=== PATIENT | male | born 1960 | race Caucasian/White ===

== ENCOUNTER → 2017-02-13 | Outpatient (CLI) | payer OTHER ==
[2017-02-13 11:53] LABS: ALT 40 U/L (21-72); AST 25 U/L (17-59); Alkaline Phosphatase 66 U/L (38-126); Anion Gap 12 mmol/L; Blood Urea Nitrogen 17 mg/dL (9-20); Calcium 9.3 mg/dL (8.4-10.2); Carbon Dioxide 24 mmol/L (22-30); Chloride 103 mmol/L (98-107); Cholesterol 115 mg/dL (<200); Glucose 168 mg/dL (74-99); HDL Cholesterol 35 mg/dL (40-60); Non-African American GFR(MDRD) >60 (>60 ml/min/1.73 sqM); Potassium 4.7 mmol/L (3.5-5.1); Sodium 139 mmol/L (137-145); Total Bilirubin 1.4 mg/dL (0.2-1.3); Total Protein 7.5 g/dL (6.3-8.2); Triglycerides 168 mg/dL (<150)
== END | disposition home or self-care (01) ==
LOC: LABWHC1 11:07
PROVIDERS: ATTEND Internal Medicine Endocrinology, Diabetes & Metabolism
DX: E11.65 Type 2 diabetes mellitus with hyperglycemia (principal)
CPT/HCPCS: 36415; 80053; 80061; 82043

== ENCOUNTER → 2017-06-11 | Outpatient (CLI) | payer OTHER ==
[2017-06-11 13:05] LABS: Basophils % (A) 1 %; CH 28.6; CHCM 33.5; Eosinophils # (A) 0.2 k/uL (0-0.7); Eosinophils % (A) 3 %; HCT 43.7 % (39.0-53.0); HDW 2.57; HGB 14.5 gm/dL (13.0-17.5); Luc # (Auto) 0.15; Luc % (Auto) 3; Lymphocytes # (A) 1.8 k/uL (1.0-4.8); Lymphocytes % (A) 36 %; MCH 28.6 pg (25.0-35.0); MCHC 33.3 g/dL (31.0-37.0); MCV 85.9 fL (80.0-100.0); Mean Platelet Volume 6.9; Monocytes # (A) 0.3 k/uL (0-1.0); Monocytes % (A) 6 %; Neutrophils # (A) 2.6 k/uL (1.3-7.7); Neutrophils % (A) 51 %; RBC 5.08 m/uL (4.30-5.90); RDW 13.3 % (11.5-15.5); WBC (Perox) 4.92
[2017-06-11 13:35] LABS: ALT 45 U/L (21-72); AST 22 U/L (17-59); Alkaline Phosphatase 68 U/L (38-126); Anion Gap 10 mmol/L; Blood Urea Nitrogen 15 mg/dL (9-20); Calcium 9.7 mg/dL (8.4-10.2); Carbon Dioxide 25 mmol/L (22-30); Chloride 102 mmol/L (98-107); Cholesterol 134 mg/dL (<200); Glucose 197 mg/dL (74-99); HDL Cholesterol 35 mg/dL (40-60); Non-African American GFR(MDRD) >60 (>60 ml/min/1.73 sqM); Potassium 5.1 mmol/L (3.5-5.1); Sodium 137 mmol/L (137-145); Total Bilirubin 1.3 mg/dL (0.2-1.3); Total Protein 6.8 g/dL (6.3-8.2)
== END | disposition home or self-care (01) ==
LOC: LABWHC1 11:57
PROVIDERS: ATTEND Internal Medicine Endocrinology, Diabetes & Metabolism
DX: E11.65 Type 2 diabetes mellitus with hyperglycemia (principal)
CPT/HCPCS: 36415; 80053; 80061; 82043; 82570; 84443; 85025

== ENCOUNTER 2017-10-14 10:17 | Observation (INO) | payer OTHER ==
[2017-10-14] MEDS ORDERED: ASPIRIN 81 MG PO STA (10:30)
--- NOTE | 2017-10-14 10:40 | ED ---
Chest Pain HPI - General Chief Complaint: Chest Pain Stated Complaint: CHEST PAIN Time Seen by Provider: 10/14/17 10:29 Source: patient Mode of arrival: wheelchair Limitations: no limitations - History of Present Illness Initial Comments: Patient complains of chest pain. His symptoms began about 3 hours ago. He had a burning sensation. He took a nitro tab, as well as some soda. He states that his symptoms have resolved. He has no nausea, vomiting, diaphoresis. He currently has no belly or back pain. He has no lightheadedness or dizziness. He has no neck pain or stiffness. He denies any palpitations. He has no pain or swelling in the arms or legs. He had no focal weakness. The pain did not radiate anywhere. - Related Data Home Medications Medication Instructions Recorded Confirmed Aspirin 81 mg PO DAILY 04/26/14 10/14/17 Clopidogrel [Plavix] 75 mg PO DAILY 04/26/14 10/14/17 Liraglutide [Victoza 3-Familia] 1.8 mg SQ DAILY 04/26/14 10/14/17 Metoprolol Succinate [Toprol XL] 50 mg PO HS 04/26/14 10/14/17 Atorvastatin [Lipitor] 20 mg PO HS 10/14/17 10/14/17 Enalapril [Vasotec] 5 mg PO DAILY 10/14/17 10/14/17 Insulin Detemir [Levemir Flextouch] 48 units SQ BID 10/14/17 10/14/17 Multivitamin [Men's Multi-Vitamin] 1 tab PO DAILY 10/14/17 10/14/17 [place]-3 Fatty Acids/Fish Oil [Fish 1 cap PO BID 10/14/17 10/14/17 Oil 1,000 mg Softgel] Ubidecarenone [Co Q-10] 100 mg PO BID 10/14/17 10/14/17 metFORMIN HCL [Glucophage] 850 mg PO BID 10/14/17 10/14/17 Previous Rx's Medication Instructions Recorded Nitroglycerin Sl Tabs [Nitrostat] 0.4 mg SUBLINGUAL Q5M PRN #20 tab 04/27/14 Allergies Allergy/AdvReac Type Severity Reaction Status Date / Time No Known Allergies Allergy Verified 10/14/17 10:56 Review of Systems ROS Statement: Those systems with pertinent positive or pertinent negative responses have been documented in the HPI. ROS Other: All systems not noted in ROS Statement are negative. EKG Findings - EKG Comments: EKG Findings:: EKG interpreted by me showing 55 bpm, normal NM interval and QRS complexes, no ST elevation or depression, interpreted by me as sinus bradycardia. Past Medical History Past Medical History: Coronary Artery Disease (CAD), Diabetes Mellitus, Hyperlipidemia, Hypertension History of Any Multi-Drug Resistant Organisms: None Reported Past Surgical History: Heart Catheterization With Stent, Orthopedic Surgery Additional Past Surgical History / Comment(s): heart cath x3 Past Anesthesia/Blood Transfusion Reactions: No Reported Reaction Date of Last Stent Placement:: 2008 Past Psychological History: No Psychological Hx Reported Smoking Status: Former smoker Past Alcohol Use History: None Reported Past Drug Use History: None Reported - Past Family History Father Family Medical History: Cancer, Coronary Artery Disease (CAD), Diabetes Mellitus , Prostate Disorder Mother Additional Family Medical History / Comment(s): Valve replacement, mrsa, [place] Palsy General Exam Limitations: no limitations General appearance: alert, in no apparent distress Head exam: Present: atraumatic, normocephalic, normal inspection Eye exam: Present: normal appearance, PERRL, EOMI. Absent: scleral icterus, conjunctival injection, periorbital swelling ENT exam: Present: normal exam, mucous membranes moist Neck exam: Present: normal inspection. Absent: tenderness, meningismus, lymphadenopathy Respiratory exam: Present: normal lung sounds bilaterally. Absent: respiratory distress, wheezes, rales, rhonchi, stridor Cardiovascular Exam: Present: regular rate, normal rhythm, normal heart sounds. Absent: systolic murmur, diastolic murmur, rubs, gallop, clicks GI/Abdominal exam: Present: soft, normal bowel sounds. Absent: distended, tenderness, guarding, rebound, rigid Extremities exam: Present: normal inspection, full ROM, normal capillary refill. Absent: tenderness, pedal edema, joint swelling, calf tenderness Back exam: Present: normal inspection Neurological exam: Present: alert, oriented X3, CN II-XII intact Psychiatric exam: Present: normal affect, normal mood Skin exam: Present: warm, dry, intact, normal color. Absent: rash Course Vital Signs 10/14/17 10:22 Temperature 97.4 F L Pulse Rate 59 L Respiratory 20 Rate Blood Pressure 122/58 O2 Sat by Pulse 100 Oximetry Chest Pain MDM - MDM Patient complains of chest pain, which was slightly relieved by nitroglycerin. On repeat evaluation his resting comfortably. His workup is negative. He does have a very extensive cardiac history including CO and cardiac stenting. This patient is not appropriate for outpatient follow-up. He will require serial cardiac enzymes as well as possible provocative testing. I will consult cardiology. Patient will be admitted to the hospital. Disposition Clinical Impression: Chest pain Disposition: ADMITTED IP TO THIS HOSP Condition: Fair Referrals: Nicholas Grimaldo MD [Primary Care Provider] - 1-2 days Time of Disposition: 12:07
[2017-10-14 11:04] LABS: Basophils # (A) 0.1 k/uL (0-0.2); Basophils % (A) 1 %; Eosinophils # (A) 0.3 k/uL (0-0.7); Eosinophils % (A) 3 %; HCT 44.6 % (39.0-53.0); HGB 14.6 gm/dL (13.0-17.5); Lymphocytes # (A) 2.3 k/uL (1.0-4.8); Lymphocytes % (A) 23 %; MCH 27.5 pg (25.0-35.0); MCHC 32.9 g/dL (31.0-37.0); MCV 83.6 fL (80.0-100.0); Mean Platelet Volume 7.1; Monocytes # (A) 0.7 k/uL (0-1.0); Monocytes % (A) 7 %; Neutrophils # (A) 6.6 k/uL (1.3-7.7); Neutrophils % (A) 66 %; Platelet Count 364 k/uL (150-450); RBC 5.34 m/uL (4.30-5.90); RDW 14.3 % (11.5-15.5)
[2017-10-14 11:14] LABS: Partial Thromboplastin Time 23.1 sec (22.0-30.0); Prothrombin Time 10.1 sec (9.0-12.0)
[2017-10-14 11:17] LABS: ALT 49 U/L (21-72); AST 20 U/L (17-59); Albumin 4.3 g/dL (3.5-5.0); Alkaline Phosphatase 69 U/L (38-126); Anion Gap 14 mmol/L; Blood Urea Nitrogen 20 mg/dL (9-20); Carbon Dioxide 27 mmol/L (22-30); Chloride 97 mmol/L (98-107); Glucose 139 mg/dL (74-99); Lipase 142 U/L (23-300); Magnesium 1.4 mg/dL (1.6-2.3); Sodium 138 mmol/L (137-145); Total Bilirubin 1.3 mg/dL (0.2-1.3); Total Protein 6.8 g/dL (6.3-8.2)
--- NOTE | 2017-10-14 11:33 | XR ---
EXAMINATION TYPE: XR chest 2V DATE OF EXAM: 10/14/2017 COMPARISON: Chest x-ray April 25, 2014 HISTORY: History of heart attack presents with chest pain. TECHNIQUE: Frontal and lateral views of the chest are obtained. FINDINGS: There is no focal air space opacity, pleural effusion, or pneumothorax seen. The cardiac silhouette size is within normal limits. Multilevel spurring in the mid to lower thoracic spine is re demonstrated. IMPRESSION: No acute process. No significant change from prior.
[2017-10-14 12:02] LABS: Appearance,Urine Clear (Clear); Bilirubin,Urine Negative (Negative); Blood,Urine Negative (Negative); Color,Urine Light Yellow; Glucose,Urine (UA) Negative (Negative); Ketones,Urine Negative (Negative); Leukocyte Esterase,Urine Negative (Negative); Nitrite,Urine Negative (Negative); Protein,Urine Negative (Negative); Specific Gravity,Urine 1.006 (1.001-1.035); Urobilinogen,Urine <2.0 mg/dL (<2.0)
[2017-10-14] MEDS ORDERED: NALOXONE 0.4 MG/ML 1 ML VIAL IV PRN (12:08)
[2017-10-14] MEDS ORDERED: ONDANSETRON 4 MG/2 ML VIAL IVP PRN (12:08)
[2017-10-14] MEDS ORDERED: MORPHINE SULFATE 5 MG/ML SYRINGE IV PRN (12:08)
[2017-10-14] MEDS ORDERED: NITROGLYCERIN SL TABS 0.4 MG TAB SUBLINGUAL PRN (12:11)
[2017-10-14 20:12] LABS: Glucose,Whole Blood 274 mg/dL (75-99)
[2017-10-14] MEDS ORDERED: ATORVASTATIN 20 MG TAB PO SCH (21:00)
[2017-10-14] MEDS: METOPROLOL SUCCINATE (ER) 50 MG TAB.ER.24H PO SCH (21:03)
[2017-10-14] MEDS: INSULIN DETEMIR 100 UNIT/ML 10 ML VIAL SQ SCH (21:03)
[2017-10-14] MEDS: FAMOTIDINE 20 MG TAB PO SCH (21:03)
[2017-10-14] MEDS: metFORMIN 850 MG TAB PO SCH (21:03)
--- NOTE | 2017-10-14 22:15 | HP ---
HISTORY AND PHYSICAL DATE OF ADMISSION: 10/14/2017. PRESENTING COMPLAINT: Chest pain. HISTORY OF PRESENTING COMPLAINT: A very pleasant 57-year-old patient of Dr. Grimaldo. Also follows with cardiology, Dr. Draa Ibanez. The patient has had 4 coronary stents, the last one being 3 years ago. No stress test since then. Other chronic stable medical conditions include diabetes, hypertension, hyperlipidemia. 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 There was no radiation, no shortness of breath, no perspiration, no dizziness, though does feel nauseated. The patient did take a nitro with only minimal relief. Symptoms lasted for a good at least 1 hour until he got relief and patient came into the ER for the diagnosis of unstable angina. The patient is able to carry out normally his chores without any symptoms. REVIEW OF SYSTEMS: CONSTITUTIONAL: None. HEENT: None. RESPIRATORY: None. CARDIOVASCULAR: As above. GASTROINTESTINAL: None. GENITOURINARY: None. MUSCULOSKELETAL: None. DERMATOLOGICAL: None. HEMATOLOGIC: None. LYMPHATIC: None. PSYCHIATRY: None. NEUROLOGICAL: None. PAST MEDICAL HISTORY: Coronary artery disease with stent, diabetes, GERD, hyperlipidemia, varicose veins bilaterally, rosacea. PAST SURGICAL HISTORY: Cardiac cath with stent, re-attached muscle. SOCIAL HISTORY: . He works on the [employer] line. Smoked for 18 years, stopped 18 years ago. Alcohol rarely. FAMILY HISTORY: Coronary artery disease, diabetes, prostate cancer in the father. HOME MEDICATIONS: 1. Glucophage 850 mg b.i.d. 2. CO-Q10 100 mg b.i.d. 3. Fish oil 1 capsule p.o. daily. 4. Nitrostat 0.4 sublingual q.5 p.r.n. 5. Men's multivitamin 1 tablet p.o. daily. 6. Toprol-XL 50 mg p.o. q.h.s. 7. Victoza 3-pack 1.2 mg subcu daily. 8. Levemir 48 units subcu b.i.d. 9. Vasotec 5 mg p.o. daily. 10.Plavix 75 mg p.o. daily. 11.Lipitor 20 mg q.h.s. 12.Aspirin 81 mg p.o. daily. ALLERGIES: None. EXAMINATION: Temperature 98.4, pulse 74, respirations 18, blood pressure 110/67, pulse ox 94% on room air. GENERAL APPEARANCE: Elderly male, lying in bed, comfortable. EYES: Pupils equal. Conjunctivae normal. HEENT: Oral cavity normal. NECK: JVD not raised. Mass not palpable. RESPIRATORY: Effort normal. Lungs are clear. CARDIOVASCULAR: First and second sounds normal. No edema. ABDOMEN: Soft, nontender. Liver and spleen not palpable. LYMPHATIC: No lymph node palpable. PSYCHIATRY: Alert and oriented x3. Mood and affect normal. NEUROLOGICAL: Pupils equal. Cranial nerves grossly intact. Power and sensation grossly intact. INVESTIGATIONS: White count 10, hemoglobin 14.6. Potassium 4.0, BUN and creatinine are normal. Troponin x2 negative. UA negative. EKG: Normal sinus rhythm. ASSESSMENT: 1. Unstable angina lasting for a good hour in a patient with known coronary artery disease with stent with currently 2 sets of troponin being negative. 2. Diabetes mellitus type 2, chronically on insulin. 3. Hyperlipidemia. 4. Essential hypertension. 5. Chronic rosacea. 6. Gastroesophageal reflux disease. 7. Varicose veins, bilateral lower extremity. PLAN: Home medications are resumed. Patient is currently chest pain free. Serial troponins have been placed. Cardiology was consulted. Will make the patient n.p.o. in the morning except for p.o. meds. Review of possible cardiac cath. If not, then patient will get the stress test. Care was discussed with the patient. MMODL / IJN: [id number] /
[2017-10-15 07:31] LABS: Glucose,Whole Blood 179 mg/dL (75-99)
[2017-10-15] MEDS: metFORMIN 850 MG TAB PO SCH (07:58)
[2017-10-15] MEDS: LISINOPRIL 10 MG TAB PO SCH (08:01)
[2017-10-15] MEDS: CLOPIDOGREL 75 MG TAB PO SCH (08:01)
[2017-10-15] MEDS: FAMOTIDINE 20 MG TAB PO SCH ×2 (08:02→20:44)
[2017-10-15] MEDS ORDERED: ALPRAZolam 0.5 MG TAB PO PRN (08:05)
[2017-10-15] MEDS ORDERED: ASPIRIN 325 MG TAB PO STA (08:05)
[2017-10-15] MEDS ORDERED: SODIUM CHLORIDE 0.9% 1,000 ML in EMPTY BAG 1 BAG IV ONE (08:05)
[2017-10-15] MEDS ORDERED: ATORVASTATIN 80 MG TAB PO STA (08:05)
[2017-10-15] MEDS ORDERED: ALPRAZolam 0.25 MG TAB PO PRN (08:05)
[2017-10-15] MEDS ORDERED: ASPIRIN 81 MG PO SCH (09:00)
[2017-10-15] MEDS ORDERED: MIDAZOLAM 2 MG/2 ML VIAL ONE (09:43)
[2017-10-15] MEDS ORDERED: LIDOCAINE 2% INJ 20 MG/ML (20 ML MDV) ONE (09:43)
[2017-10-15] MEDS ORDERED: diphenhydrAMINE 50 MG/ML 1 ML VIAL ONE (09:43)
[2017-10-15] MEDS ORDERED: IV FLUID CONTINUATION 925 ML IV ONE (09:50)
[2017-10-15] MEDS ORDERED: diphenhydrAMINE 50 MG/ML 1 ML VIAL IVP ONE (10:03)
[2017-10-15] MEDS ORDERED: MIDAZOLAM 2 MG/2 ML VIAL IVP ONE (10:03)
[2017-10-15] MEDS ORDERED: IOHEXOL 350 MG/ML 125ML BOTTLE INJ ONE (10:23)
[2017-10-15] MEDS ORDERED: RX INFO: IV CONTRAST WAS GIVEN 1 EACH MISC MISCELLANE PRN (11:04)
--- NOTE | 2017-10-15 11:30 | P.CRDCN ---
History of Present Illness Consult date: 10/15/17 History of present illness: Mr. Wright is a pleasant 57-year-old male with past medical history significant for coronary artery disease with 8 stents, diabetes mellitus, gastroesophageal reflux disease, dyslipidemia and former tobacco abuse. His most recent catheterization was performed 04/[address] Ibanez. That catheterization report reveals 90% in-stent restenosis mid LAD, proximal circumflex 90% stenosis, distal circumflex 80% and totally occluded RCA. At that time he sought a second opinion at [facility] at that time. He presented to the hospital yesterday after feeling tightness and burning in midsternal region while at work. 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 Initially he thought the pain was related to GERD so he drank a coke to try and elicit belching. The pain persisted for approximately an hour more and he tried tums as well as an aspirin. Unclear which helped the pain ultimately. He had no associated symptoms such as shortness of breath, dizziness, palpitations, diaphoresis or nausea/vomiting. EKG sinus mechanism with heart rate 55, no acute ST or T-wave abnormalities. Chest xray negative for acute cardiopulmonary process. Laboratory data reviewed, hgb 14.6, plt 364, potassium 4, magnesium 1.4, creatinine 0.89, cardiac enzymes negative x3. Current cardiac medications include Toprol 50 mg daily, enalapril 5 mg daily, Plavix 75 mg daily, atorvastatin 20 mg daily and aspirin 81 mg daily. Review of Systems CONSTITUTIONAL: Denies fever. Denies chills. EYES: Denies blurred vision. Denies vision changes. Denies eye pain. EARS, NOSE, MOUTH & THROAT: Denies headache. Denies sore throat. Denies ear pain. CARDIOVASCULAR: Denies chest pain. Denies shortness of breath. Denies orthopnea. Denies PND. Denies palpitations. RESPIRATORY: Denies cough. GASTROINTESTINAL: Denies abdominal pain. Denies diarrhea. Denies constipation. Denies nausea. Denies vomiting. MUSCULOSKELETAL: Denies myalgias. INTEGUMENTARY: Denies pruitis. Denies rash. NEUROLOGIC: Denies numbness. Denies tingling. Denies weakness. PSYCHIATRIC: Denies anxiety. Denies depression. ENDOCRINE: Denies fatigue. Denies weight change. Denies polydipsia. Denies polyurina. GENITOURINARY: Denies burning, hematuria or urgency with micturation. HEMATOLOGIC: Denies history of anemia. Denies bleeding. Past Medical History Past Medical History: Coronary Artery Disease (CAD), Diabetes Mellitus, GERD/ Reflux, Hyperlipidemia, Myocardial Infarction ([place]), Skin Disorder Additional Past Medical History / Comment(s): Pt states he is currently being tx for a upper respiratory tract/ throat infection with ABX/steroids, IDDM type II, varicosities bilaterally, rosacia. Last Myocardial Infarction Date:: 2013 History of Any Multi-Drug Resistant Organisms: None Reported Past Surgical History: Heart Catheterization, Heart Catheterization With Stent, Orthopedic Surgery, Tonsillectomy Additional Past Surgical History / Comment(s): PCI with stents, R arm reattached muscle, colonoscopy. Past Anesthesia/Blood Transfusion Reactions: No Reported Reaction Date of Last Stent Placement:: 2013 Smoking Status: Former smoker - Past Family History Father Family Medical History: Cancer, Coronary Artery Disease (CAD), Diabetes Mellitus , Prostate Disorder Additional Family Medical History / Comment(s): Father is . He had prostate cancer. Mother Additional Family Medical History / Comment(s): Mother is . She had valve replacement, mrsa, [place] Palsy Medications and Allergies Home Medications Medication Instructions Recorded Confirmed Type Aspirin 81 mg PO DAILY 04/26/14 10/14/17 History Clopidogrel [Plavix] 75 mg PO DAILY 04/26/14 10/14/17 History Liraglutide [Victoza 3-Familia] 1.8 mg SQ DAILY 04/26/14 10/14/17 History Metoprolol Succinate [Toprol XL] 50 mg PO HS 04/26/14 10/14/17 History Nitroglycerin Sl Tabs [Nitrostat] 0.4 mg SUBLINGUAL Q5M PRN #20 tab 04/27/1407/22 Rx Atorvastatin [Lipitor] 20 mg PO HS 10/14/17 10/14/17 History Enalapril [Vasotec] 5 mg PO DAILY 10/14/17 10/14/17 History Insulin Detemir [Levemir Flextouch] 48 units SQ BID 10/14/17 10/14/17 History Multivitamin [Men's Multi-Vitamin] 1 tab PO DAILY 10/14/17 10/14/17 History [place]-3 Fatty Acids/Fish Oil [Fish 1 cap PO BID 10/14/17 10/14/17 History Oil 1,000 mg Softgel] Ubidecarenone [Co Q-10] 100 mg PO BID 10/14/17 10/14/17 History metFORMIN HCL [Glucophage] 850 mg PO BID 10/14/17 10/14/17 History Allergies Allergy/AdvReac Type Severity Reaction Status Date / Time No Known Allergies Allergy Verified 10/14/17 10:56 Physical Exam Vitals: Vital Signs Temp Pulse Pulse Resp BP BP Pulse Ox 10/15/17 08:00 97.6 F 66 18 113/67 97 10/15/17 03:53 81 18 10/15/17 03:22 98.4 F 81 18 101/65 95 10/14/17 23:55 18 10/14/17 22:35 64 18 122/69 95 10/14/17 20:00 18 10/14/17 19:22 98.4 F 74 18 110/67 94 L 10/14/17 18:19 97.6 F 82 16 123/68 97 10/14/17 17:43 97.6 F 83 18 107/56 97 10/14/17 15:22 56 L 16 125/71 98 10/14/17 14:00 58 L 18 121/68 98 10/14/17 13:20 56 L 18 123/57 100 10/14/17 12:24 58 L 18 125/77 100 10/14/17 11:24 60 18 109/61 100 Intake and Output 10/14/17 10/15/17 10/15/17 22:59 06:59 14:59 Intake Total 250 Balance 250 Intake: IV 250 Other: Voiding Method Toilet # Voids 1 Weight 75.5 kg 75.5 kg Blood pressure 113/67 heart rate 66 afebrile GENERAL: This is a 57-year-old male in no apparent distress at the time of my examination. HEENT: Head is atraumatic, normocephalic. Pupils are equal, round. Sclerae anicteric. Conjunctivae are clear. Mucous membranes of the mouth are moist. Neck is supple. There is no jugular venous distention. No carotid bruit is heard. LUNGS: Clear to auscultation no wheezes, rales or rhonchi. No chest wall tenderness is noted on palpation or with deep breathing. HEART: Regular rate and rhythm without murmurs, rubs or gallops. S1 and S2 heard. ABDOMEN: Soft, nontender. Bowel sounds are heard. No organomegaly noted. EXTREMITIES: 2+ peripheral pulses with no evidence of peripheral edema and no calf tenderness noted. NEUROLOGIC: Patient is awake, alert and oriented x3. Results 10/14/17 10:45 10/14/17 10:45 Cardiac Enzymes 10/14/17 10/14/17 10/14/17 Range/Units 10:45 10:45 19:01 AST 20 (17-59) U/L Troponin I <0.012 <0.012 (0.000-0.034) ng/mL 10/14/17 Range/Units 22:31 AST (17-59) U/L Troponin I <0.012 (0.000-0.034) ng/mL Coagulation 10/14/17 Range/Units 10:45 PT 10.1 (9.0-12.0) sec APTT 23.1 (22.0-30.0) sec CBC 10/14/17 Range/Units 10:45 WBC 10.0 (3.8-10.6) k/uL RBC 5.34 (4.30-5.90) m/uL Hgb 14.6 (13.0-17.5) gm/dL Hct 44.6 (39.0-53.0) % Plt Count 364 (150-450) k/uL Comprehensive Metabolic Panel 10/14/17 Range/Units 10:45 Sodium 138 (137-145) mmol/L Potassium 4.0 (3.5-5.1) mmol/L Chloride 97 L (98-107) mmol/L Carbon Dioxide 27 (22-30) mmol/L BUN 20 (9-20) mg/dL Creatinine 0.89 (0.66-1.25) mg/dL Glucose 139 H (74-99) mg/dL Calcium 10.0 (8.4-10.2) mg/dL AST 20 (17-59) U/L ALT 49 (21-72) U/L Alkaline Phosphatase 69 (38-126) U/L Total Protein 6.8 (6.3-8.2) g/dL Albumin 4.3 (3.5-5.0) g/dL Current Medications Generic Name Dose Route Start Last Admin Trade Name Freq PRN Reason Stop Dose Admin Alprazolam 0.25 mg 10/15/17 08:05 Xanax PO Q6HR PRN Mild Anxiety Alprazolam 0.5 mg 10/15/17 08:05 Xanax PO Q6HR PRN Moderate Anxiety Clopidogrel Bisulfate 75 mg 10/15/17 09:00 10/15/17 08:01 Plavix PO 75 mg DAILY ANDREA Administration Famotidine 20 mg 10/14/17 21:00 10/15/17 08:02 Pepcid PO 20 mg BID ANDREA Administration Insulin Detemir 48 unit 10/14/17 21:00 10/14/17 21:03 Levemir SQ 48 unit BID [facility] Administration Lisinopril 10 mg 10/15/17 09:00 10/15/17 08:01 Zestril PO 10 mg DAILY [facility] Administration Metoprolol Succinate 50 mg 10/14/17 21:00 10/14/17 21:03 Toprol Xl PO 50 mg HS [facility] Administration Morphine Sulfate 4 mg 10/14/17 12:08 Morphine Sulfate IV Q4HR PRN Severe Pain Naloxone HCl 0.2 mg 10/14/17 12:08 Narcan IV Q2M PRN Opioid Reversal Nitroglycerin 0.4 mg 10/14/17 12:11 Nitrostat SUBLINGUAL Q5M PRN Chest Pain Liraglutide [Victoza 1.8 mg 10/15/17 09:00 ] 1.8 Mg SQ DAILY [facility] Ondansetron HCl 4 mg 10/14/17 12:08 Zofran IVP Q8HR PRN Nausea And Vomiting Intake and Output 10/14/17 10/15/17 10/15/17 22:59 06:59 14:59 Intake Total 250 Balance 250 Intake: IV 250 Other: Voiding Method Toilet # Voids 1 Weight 75.5 kg 75.5 kg 10/14/17 10:45 10/14/17 10:45 Assessment and Plan Assessment: ASSESSMENT 1. Unstable angina 2. Known coronary artery disease 3. Dyslipidemia 4. Hypertension 5. Diabetes mellitus 6. Hypomagnesemia PLAN Obtain 2-D echocardiogram and Doppler study to assess cardiac structure and function. Replace magnesium per protocol. Recommend proceeding with cardiac catheterization to evaluate symptoms of unstable angina. I have discussed the risks, benefits and alternative therapies for the above-mentioned procedure and for both sedation/analgesia as well as necessary blood product administration, if indicated, as they pertain to this patient. The patient has indicated understanding and acceptance of the risks and procedures discussed. Questions have been answered appropriately and he is agreeable to move forward with the above stated procedure. The above impression and plan of care have been discussed and directed by the signing physician. Ann Marie Beltran, nurse practitioner, acting as scribe for signing physician.
[2017-10-15 12:22] LABS: Glucose,Whole Blood 245 mg/dL (75-99)
[2017-10-15] MEDS: Liraglutide [Victoza] 1.8 MG SQ SCH (13:03)
[2017-10-15] MEDS: INSULIN DETEMIR 100 UNIT/ML 10 ML VIAL SQ SCH ×2 (13:33→21:22)
[2017-10-15] MEDS ORDERED: SODIUM CHLORIDE 0.9% 250 ML IV ONE (14:51)
[2017-10-15] MEDS ORDERED: SODIUM CHLORIDE 0.9% 1,000 ML IV SCH (15:00)
--- NOTE | 2017-10-15 15:03 | P.PN ---
Progress Note - Text Progress Note Date: 10/15/17 Called by nursing to the room to evaluate Mr. Wright for a brief episode of bleeding from right femoral access site. At the time of my exam he is laying flat in bed with no evidence of bleeding. There is some saturation of the bed beneath him. The site is soft, non-tender, no bruising and no signs of hematoma. Blood pressure is 86/40. He denies chest pain, shortness of breath, dizziness, palpitations, pain in the groin or abdomen. Orders have been placed for fem-stop device at 40mmHg for 4 hours, 250cc normal saline bolus then 100cc/ hr thereafter. He will stay overnight for observation.
--- NOTE | 2017-10-15 15:26 | ECHOF ---
Referral Reason:chest pain MEASUREMENTS -------- HEIGHT: 172.7 cm WEIGHT: 77.1 kg BP: 122/58 IVSd: 0.9 cm (0.6 - 1.1) LVIDd: 3.6 cm (3.9 - 5.3) LVPWd: 1.0 cm (0.6 - 1.1) IVSs: 1.2 cm LVIDs: 2.7 cm LVPWs: 1.2 cm LAESV Index (A-L): 12.38 ml/m Ao Diam: 3.1 cm (2.0 - 3.7) AV Cusp: 2.1 cm (1.5 - 2.6) LA Diam: 3.3 cm (2.7 - 3.8) EPSS: 0.8 cm MV E [place]orta: 0.64 m/s MV DecT: 203 ms MV A [place]: 0.61 m/s MV E/A Ratio: 1.06 RAP: 5.00 mmHg RVSP: 8.86 mmHg MV EF SLOPE: 151.50 mm/s (70 - 150) MV EXCURSION: 1.90 cm (> 18.000) FINDINGS -------- Resting bradycardia (HR<60bpm). This was a technically adequate study. The left ventricular size is normal. Left ventricular wall thickness is normal. Overall left vent ricular systolic function is low-normal with, an EF between 50 - 55 %. The right ventricle is normal in size and function. Normal LA size by volume 22+/-6 ml/m2. The right atrium is normal in size. Aortic valve is trileaflet and is mildly thickened. Trace to mild aortic regurgitation. There is no evidence of aortic stenosis. The mitral valve leaflets are mildly thickened. There is trace to mild mitral regurgitation. Trace tricuspid regurgitation present. Right ventricular systolic pressure is normal at < 35 mmHg. There is no evidence of pulmonary hypertension. The pulmonic valve was not well visualized. The aortic root size is normal. Normal inferior vena cava with normal inspiratory collapse consistent with estimated right atrial pre ssure of 5 mmHg. The pericardium is normal. There is no pericardial effusion. CONCLUSIONS -------- 1. Resting bradycardia (HR<60bpm). 2. This was a technically adequate study. 3. The left ventricular size is normal. 4. Left ventricular wall thickness is normal. 5. Overall left ventricular systolic function is low-normal with, an EF between 50 - 55 %. 6. Normal LA size by volume 22+/-6 ml/m2. 7. Aortic valve is trileaflet and is mildly thickened. 8. Trace to mild aortic regurgitation. 9. The mitral valve leaflets are mildly thickened. 10. There is trace to mild mitral regurgitation. 11. Trace tricuspid regurgitation present. 12. Right ventricular systolic pressure is normal at < 35 mmHg. 13. There is no evidence of pulmonary hypertension. 14. The pulmonic valve was not well visualized. 15. The aortic root size is normal. 16. There is no pericardial effusion. INSPECTOR FILTER TIP: Trevor Guerra RDCS
[2017-10-15 17:24] LABS: Glucose,Whole Blood 212 mg/dL (75-99)
--- NOTE | 2017-10-15 19:50 | P.PN ---
Progress Note - Text Progress Note Date: 10/15/17 DATE OF SERVICE: 10/15/2017 PRESENTING COMPLAINT: Chest pain HISTORY OF PRESENT ILLNESS: 57-year-old male with a history of previous stents. Who presented with central chest pain no radiation shortness of breath perspiration or dizziness but did feel nauseated. Took a nitroglycerin with only minimal relief symptoms lasted for about an hour and was admitted for unstable angina. Cardiology recommended proceeding with a cardiac catheterization. INTERVAL HISTORY: 10/15/2017: Patient is now status post cardiac catheterization with no intervention to be performed. Procedure was done through the right groin, no obvious bleeding or hematoma noted. Blood pressure noted to be somewhat low, IV fluids are infusing. Awake alert able to answer questions no further episodes of chest pain or pressure, no shortness of breath no radiation. REVIEW OF SYSTEMS: Done for constitutional ,cardiovascular, GI, pulmonary with relevant findings as above. CURRENT MEDICATIONS Xanax, Plavix, Pepcid, Levemir, Zestril, Toprol-XL, Nitrostat, Liraglutide, 0.9 % normal saline. PHYSICAL EXAM VITAL SIGNS: Temperature 97.9, pulse 71, respiratory rate 18, blood pressure 99/56, oxygen saturation 94% GENERAL APPEARANCE: Lying in bed, not in distress. HEENT: Normocephalic, Pupils equal. Conjunctiva normal. JVD not raised. Mass not palpable.: RESPIRATORY: Respiratory effort normal. Lungs managed to auscultation. CARDIOVASCULAR: First and second sounds normal. No edema. ABDOMEN: Soft. Liver and spleen not palpable. No tenderness. No mass palpable. PSYCHIATRY: Alert and oriented x3. Mood and affect normal. INTEGUMENT: Right groin access site clean dry and intact dressing in place no bleeding or hematoma noted INVESTIGATIONS: Accu-Cheks noted ASSESSMENT: -Unstable angina in a patient with known coronary artery disease and previous stent placement, cardiac catheterization negative for lesions or blocks stent -Diabetes mellitus type 2, chronically on insulin. -Hyperlipidemia -Essential hypertension. -Chronic rosacea. -Gastroesophageal reflux disease. -Varicose veins, bilateral lower extremity. PLAN: Original plan was for the patient to go home later today however about 3 PM cardiology nurse practitioner was called for an episode of bleeding for which they placed FemoStop and patient will remain in observation overnight. Plan of care discussed with the patient, he is in agreement. We'll follow closely. SUPERVISOR [employer] statement: Patient was seen and examined by nurse practitioner Deirdre Bauman and all elements of the case discussed with attending Dr. Modi
[2017-10-15 20:33] LABS: Glucose,Whole Blood 343 mg/dL (75-99)
[2017-10-15] MEDS: METOPROLOL SUCCINATE (ER) 50 MG TAB.ER.24H PO SCH (20:44)
--- NOTE | 2017-10-15 23:25 | PN ---
PROGRESS NOTE DATE OF SERVICE: 10/15/2017. ATTENDING NOTE: The patient seen and examined by me. I discussed with my nurse practitioner, Ms. Bauman. I saw this patient earlier today just after his cardiac cath. Lesions were found, but nothing for intervention. No critical stenosis. The patient is having some bleeding from the groin site and Cardiology is going to put a FemoStop. Otherwise, no chest pain, shortness of breath. EXAMINATION: Temperature 97.9 pulse 65, blood pressure is 99/44, pulse ox 6% on room air. Lungs are clear. CARDIOVASCULAR: First and second sounds normal. ASSESSMENT: 1. Unstable angina. Patient with known coronary artery disease status post cardiac catheterization with no critical stenosis on today's cardiac catheterization. 2. Some blood loss from the local cardiac catheterization site for a FemoStop. PLAN: Per cardiology, patient will be held back today. Will check a CBC in the morning. Care was discussed with the patient. MMODL / IJN: [id number] /
[2017-10-16 06:41] LABS: Glucose,Whole Blood 102 mg/dL (75-99)
[2017-10-16 07:27] LABS: Basophils % (A) 1 %; Eosinophils # (A) 0.3 k/uL (0-0.7); Eosinophils % (A) 4 %; HCT 41.5 % (39.0-53.0); HGB 13.7 gm/dL (13.0-17.5); Lymphocytes # (A) 2.3 k/uL (1.0-4.8); Lymphocytes % (A) 35 %; MCH 27.9 pg (25.0-35.0); MCHC 33.1 g/dL (31.0-37.0); MCV 84.2 fL (80.0-100.0); Mean Platelet Volume 6.4; Monocytes # (A) 0.5 k/uL (0-1.0); Monocytes % (A) 7 %; Neutrophils # (A) 3.3 k/uL (1.3-7.7); Neutrophils % (A) 51 %; Platelet Count 311 k/uL (150-450); RBC 4.93 m/uL (4.30-5.90); RDW 12.5 % (11.5-15.5); WBC 6.4 k/uL (3.8-10.6)
[2017-10-16 07:29] LABS: Anion Gap 9 mmol/L; Blood Urea Nitrogen 14 mg/dL (9-20); Calcium 9.2 mg/dL (8.4-10.2); Carbon Dioxide 24 mmol/L (22-30); Chloride 106 mmol/L (98-107); Glucose 106 mg/dL (74-99); Potassium 4.3 mmol/L (3.5-5.1); Sodium 139 mmol/L (137-145)
[2017-10-16 08:23] VITALS: RESP 16
[2017-10-16] MEDS: FAMOTIDINE 20 MG TAB PO SCH (08:55)
[2017-10-16] MEDS: LISINOPRIL 10 MG TAB PO SCH (08:55)
[2017-10-16] MEDS: CLOPIDOGREL 75 MG TAB PO SCH (08:55)
[2017-10-16] MEDS: INSULIN DETEMIR 100 UNIT/ML 10 ML VIAL SQ SCH (08:56)
[2017-10-16] MEDS ORDERED: MORPHINE SULFATE 2 MG/ML SYRINGE IV PRN (08:58)
[2017-10-16] MEDS: Liraglutide [Victoza] 1.8 MG SQ SCH (09:08)
--- NOTE | 2017-10-16 10:34 | P.PN ---
Subjective Progress Note Date: 10/16/17 Mr. Wright is seen today in follow-up. He underwent cardiac catheterization yesterday with Dr. Chin which revealed no progression of coronary artery disease and patent stents. He is advised of medical therapy. He had a minor episode of bleeding in his right groin s/p cath of which fem stop was applied and bedrest was increased. He had no further episodes of bleeding. Right groin is soft, non-tender, no swelling, no hematoma. He has been up ambulating the halls and back and forth to the bathroom without difficulty. Objective - Vital Signs Vital signs: Vital Signs Temp 98.1 F 10/16/17 08:00 Pulse 50 L 10/16/17 08:00 Resp 16 10/16/17 08:00 BP 87/66 10/16/17 08:00 Pulse Ox 98 10/16/17 08:00 Intake & Output 10/15/17 10/16/17 10/16/17 18:59 06:59 18:59 Intake Total 1005 360 Balance 1005 360 Intake: IV 525 Oral 480 360 Other: Voiding Method Toilet Toilet Toilet Urinal Urinal # Voids 1 2 2 - Exam Vitals blood pressure 100/60. Heart rate is 62. Afebrile. GENERAL: Well-appearing, well-nourished and in no acute distress. NECK: Supple without JVD or thyromegaly. LUNGS: Breath sounds clear to auscultation bilaterally. Respiration equal and unlabored. No wheezes, rales or rhonchi. HEART: Regular rate and rhythm without murmurs, rubs or gallops. S1 and S2 heard. EXTREMITIES: Normal range of motion, no edema. No clubbing or cyanosis. Peripheral pulses intact and strong. Right groin soft, non-tender, no hematoma, no sign of bleeding. - Labs CBC & Chem 7: 10/16/17 06:28 10/16/17 06:28 Labs: Abnormal Lab Results - Last 24 Hours (Table) 10/15/17 10/15/17 10/15/17 Range/Units 12:03 17:01 20:21 Glucose (74-99) mg/dL POC Glucose (mg/dL) 245 H 212 H 343 H (75-99) mg/dL 10/16/17 10/16/17 Range/Units 06:28 06:38 Glucose 106 H (74-99) mg/dL POC Glucose (mg/dL) 102 H (75-99) mg/dL Assessment and Plan Assessment: ASSESSMENT 1. Unstable angina 2. Known coronary artery disease 3. Dyslipidemia 4. Hypertension 5. Diabetes mellitus 6. Hypomagnesemia PLAN Stable for discharge home. Follow up with Dr. Chin in 1-2 weeks. The above impression and plan of care have been discussed and directed by the signing physician. Ann Marie Beltran, nurse practitioner, acting as scribe for signing physician.
[2017-10-16 11:26] VITALS: BP 111/54; PULSE 59; TEMP 98.2
[2017-10-16 11:57] LABS: Glucose,Whole Blood 190 mg/dL (75-99)
--- NOTE | 2017-10-16 13:02 | DS ---
DISCHARGE SUMMARY DATE OF ADMISSION: 10/14/2017 DATE OF DISCHARGE: 10/16/2017 FINAL DIAGNOSIS: 1. Possible angina in a patient with known coronary artery disease. 2. Diabetes mellitus type 2, chronically on insulin. 3. Hyperlipidemia. 4. Essential hypertension. 5. Chronic rosacea. 6. Gastroesophageal reflux disease. 7. Varicose veins, lower extremity. 8. Coronary artery disease, prior history of stent. HOSPITAL COURSE: This is a pleasant gentleman, 57 [address] Grimaldo's whose last stent was 4 years ago. Did present with a bit cardiac-sounding presentation, did undergo a cardiac catheterization by Dr. Chin, a nonobstructive lesion was found. Not for any intervention. Because of his presentation, nitrates are being added. Patient's hemoglobin is stable today at 13.7. On examination, lungs are clear. CARDIOVASCULAR: First and second sounds are normal. The patient has been up and out of bed with no further cardiac symptoms. CONSULTATION: Dr. Rosetta Chin from Cardiology. DISCHARGE MEDICATIONS: 1. Aspirin 81 mg p.o. daily. 2. Plavix 75 mg p.o. daily. 3. Victoza 1.8 mg subcu daily. 4. Toprol-XL 50 mg p.o. q.h.s. 5. Nitrostat 0.4 sublingual q.5 p.r.n. 6. Lipitor 20 mg q.h.s. 7. Vasotec 5 mg p.o. daily. 8. Levemir 48 units subcu b.i.d. 9. Men's multivitamin 1 tablet p.o. daily. 10.Fish oil 1000 mg p.o. b.i.d. 11.CO Q-10 one hundred mg p.o. b.i.d. 12.Glucophage 850 mg p.o. b.i.d. 13.Imdur ER 50 mg p.o. daily. Follow up wit Dr. Grimaldo in 1 week, follow up with Dr. Rosetta Chin in 10/23/2017. MMODL / DCIKN: [id number] /
--- NOTE | 2017-10-30 10:31 | CC ---
CARDIAC CATHETERIZATION REPORT INDICATION: Unstable angina in a patient with known CAD, status post prior angioplasty. After obtaining informed consent, left heart catheterization and coronary angiogram were performed via the right femoral artery using standard Jie catheters. The patient tolerated the procedure well without any immediate complications. Patient received moderate conscious sedation. Total sedation time was 15 minutes. FINDINGS: 1. HEMODYNAMICS: Left ventricular end-diastolic pressure is 8 to 12 mm. There is no significant gradient across the aortic valve. 2. LEFT VENTRICULOGRAM: Left ventriculogram was not performed. 3. ANGIOGRAPHIC DATA:. 4. LEFT MAIN CORONARY ARTERY: Left main coronary artery is normal. There is no history of stenosis. It divides into left anterior descending coronary artery and circumflex coronary arteries. The previously stented segment within the proximal LAD appears patent with mid LAD shows a 40% stenosis. 5. Circumflex coronary artery also shows a patent stent. 6. Right coronary artery shows a 100% occlusion. CONCLUSION: Three-vessel coronary artery disease with patent stents within the circ and proximal LAD. PLAN: Patient's management is going to be in the form of medical therapy. MMODL / IJN: [id number] /
== END 2017-10-16 13:53 | disposition home or self-care (01) ==
LOC: EC 10:17 → 3OBS 12:08
PROVIDERS: ADMIT Hospitalist; ATTEND Hospitalist
DX: I25.110 Atherosclerotic heart disease of native coronary artery with unstable angina pectoris (principal); I25.82 Chronic total occlusion of coronary artery; T82.855A Stenosis of coronary artery stent, initial encounter; E78.5 Hyperlipidemia, unspecified; K21.9 Gastro-esophageal reflux disease without esophagitis; I10 Essential (primary) hypertension; E83.42 Hypomagnesemia; L71.9 Rosacea, unspecified; I83.93 Asymptomatic varicose veins of bilateral lower extremities; E11.9 Type 2 diabetes mellitus without complications; Z79.82 Long term (current) use of aspirin; Z79.899 Other long term (current) drug therapy; Z79.4 Long term (current) use of insulin; Z79.02 Long term (current) use of antithrombotics/antiplatelets; Z95.5 Presence of coronary angioplasty implant and graft; Z87.891 Personal history of nicotine dependence; I25.2 Old myocardial infarction; Z82.49 Family history of ischemic heart disease and other diseases of the circulatory system; Z83.3 Family history of diabetes mellitus; Y83.1 Surgical operation with implant of artificial internal device as the cause of abnormal reaction of the patient, or of later complication, without mention of misadventure at the time of the procedure; Z98.890 Other specified postprocedural states
CPT/HCPCS: 99285; 36415; 93005; 93306; 93458; 83880; 80053; 80048; 83690; 83735; 84484; 85025 ×2; 85610; 85730; 81003; 71046; G0378 ×3; C1894; C1769; J2250; J1200; Q9967

== ENCOUNTER → 2018-12-18 | Outpatient (CLI) | payer OTHER ==
[2018-12-18 16:36] LABS: Albumin 4.7 g/dL (3.80-4.90); Albumin/Globulin Ratio 2.35 (1.60-3.17); Anion Gap 7.1 mmol/L (4.00-12.00); Calcium 9.6 mg/dL (8.7-10.3); Carbon Dioxide 25.9 mmol/L (21.6-31.8); LDL Cholesterol,Calculated 60.6 mg/dL (0.0-131.0); Potassium 4.2 mmol/L (3.5-5.5); Total Bilirubin 1.1 mg/dL (0.3-1.2); Total Protein 6.7 g/dL (6.2-8.2); VLDL Calculation 26.4 mg/dL (5.00-40.00)
== END | disposition home or self-care (01) ==
LOC: LABWHC1 09:56
PROVIDERS: ATTEND Internal Medicine Endocrinology, Diabetes & Metabolism
DX: E11.65 Type 2 diabetes mellitus with hyperglycemia (principal)
CPT/HCPCS: 36415; 80053; 80061; 82043; 82570; 83036; 84443

== ENCOUNTER → 2019-08-01 | Outpatient (CLI) | payer OTHER ==
--- NOTE | 2019-08-01 11:13 | NM ---
EXAMINATION TYPE: NM stress cardiolite complete DATE OF EXAM: 08/01/2019 COMPARISON: NONE HISTORY: Chronic ischemic heart disease I25.9 TECHNIQUE: After the intravenous administration of 9.8 mCi Tc 99m Sestamibi - Rest images obtained 5 0 minutes post injection. The patient exercised using a GEM protocol and 1 minute prior to peak e xercise was injected with 26.6 mCi Tc 99m Sestamibi - Stress images obtained 15 minutes post injectio n. FINDINGS: There is mild diminished radiotracer within the inferior wall on both rest and stress images. Mild pr ior infarct could be considered, greater near the cardiac base. Given the apparent normal polar map a nd wall motion, this could be artifact from patient's abdomen. Correlate with the patient's body habi tus. Wall motion appears normal. Polar maps are normal. Calculated ejection fraction is 69% which is reba l. IMPRESSION: Mild diminished radiotracer along the inferior wall on rest and stress images can be related to artif act or prior mild infarct. No stress-induced ischemic changes evident.
--- NOTE | 2019-08-02 08:31 | EST ---
EXERCISE STRESS AGE: 59 SEX: M HT: 5'8" WT: 170 PROTOCOL: Cardiolite Stress Test STAGE: 4 DURATION OF EXERCISE: 9:59 HEART RATE REST: 68 BLOOD PRESSURE REST: 123/88 MAXIMUM HEART RATE ACHIEVED: 139 MAXIMUM BLOOD PRESSURE: 187/81 85% MPHR: 136 100% MPHR: 160 METS: 11.5 INDICATIONS: Chronic ischemic heart disease. CLINICAL INFORMATION: Baseline EKG revealed normal sinus rhythm without significant ST changes. Patient walked on standard Shashank protocol for nearly 10 minutes, achieved a maximal heart rate of 139 beats per minute which is more than 85% of predicted maximum. Developed fatigue, shortness of breath, but did not have any angina or arrhythmia. Isolated PVCs and rare couplets were noted. By EKG criteria this is a negative stress test with some baseline artifact. Maximal heart rate was 139 beats per minute. There were isolated PVCs noted. No clear-cut angina was reported. By EKG criteria, this is considered as an equivocal stress test with good exercise capacity with rare PVCs at stress. Patient did not have any angina. The nuclear portion of stress test will be reported by the radiologist. MMODL / IJN: [id number] /
== END | disposition home or self-care (01) ==
LOC: RADNMMAIN 07:54
PROVIDERS: ATTEND Family Medicine
DX: R94.39 Abnormal result of other cardiovascular function study (principal); I25.9 Chronic ischemic heart disease, unspecified
CPT/HCPCS: 93017; 78452; A9500

== ENCOUNTER → 2019-08-18 | Outpatient (CLI) | payer OTHER ==
[2019-08-18 20:12] LABS: African American GFR (CKD) 94.4 (60.0-200.0); Albumin 4.7 g/dL (3.80-4.90); Albumin/Globulin Ratio 2.47 (1.60-3.17); Anion Gap 8.4 mmol/L (4.00-12.00); Calcium 9.5 mg/dL (8.7-10.3); Carbon Dioxide 27.6 mmol/L (21.6-31.8); Chol/HDL Ratio 5.11; Globulin 1.9 g/dL (1.6-3.3); LDL Cholesterol,Calculated 98.2 mg/dL (0.0-131.0); Total Bilirubin 0.7 mg/dL (0.3-1.2); Total Protein 6.6 g/dL (6.2-8.2); VLDL Calculation 45.8 mg/dL (5.00-40.00)
[2019-08-18 21:32] LABS: Hemoglobin A1C 8.4 % (4.0-6.0)
== END | disposition home or self-care (01) ==
LOC: LABWHC1 13:13
PROVIDERS: ATTEND Internal Medicine Endocrinology, Diabetes & Metabolism
DX: E11.65 Type 2 diabetes mellitus with hyperglycemia (principal)
CPT/HCPCS: 36415; 80053; 80061; 82043; 82570; 83036; 84443

== ENCOUNTER 2019-08-19 20:21 | Observation (INO) | payer OTHER ==
[2019-08-19 21:10] LABS: Basophils # (A) 0.1 k/uL (0-0.2); Basophils % (A) 1 %; Eosinophils # (A) 0.4 k/uL (0-0.7); Eosinophils % (A) 5 %; HCT 36.3 % (39.0-53.0); HGB 13.8 gm/dL (13.0-17.5); Lymphocytes % (A) 22 %; MCH 31.9 pg (25.0-35.0); MCHC 37.9 g/dL (31.0-37.0); MCV 84.1 fL (80.0-100.0); Mean Platelet Volume 5.7; Monocytes # (A) 0.5 k/uL (0-1.0); Monocytes % (A) 5 %; Neutrophils % (A) 66 %; Platelet Count 347 k/uL (150-450); RBC 4.32 m/uL (4.30-5.90); RDW 12.9 % (11.5-15.5); WBC 9.2 k/uL (3.8-10.6)
[2019-08-19 21:19] LABS: INR 0.9 (<1.2); Partial Thromboplastin Time 24.8 sec (22.0-30.0); Prothrombin Time 9.7 sec (9.0-12.0)
--- NOTE | 2019-08-19 21:19 | ED ---
General Adult HPI - General Chief complaint: Chest Pain Stated complaint: Chest Pain Time Seen by Provider: 08/19/19 21:02 Source: patient, RN notes reviewed, old records reviewed Limitations: no limitations - History of Present Illness Initial comments: 59-year-old male history of CAD presents for evaluation of central chest pain. Patient had onset of central nonradiating chest pain which began approximately one hour prior to arrival. This lasted up to 90 minutes. As resolved at the time my evaluation. This was nonexertional central chest pain. No associated nausea vomiting. No diaphoresis. Patient has history of CAD he is currently on aspirin and Plavix. His last heart catheterization was one month ago. He took both Tums and nitroglycerin for relief of his symptoms with minimal relief with either treatment. His symptoms have resolved at the time my evaluation. He is chest pain-free. - Related Data Home Medications Medication Instructions Recorded Confirmed Aspirin 81 mg PO DAILY 04/26/14 08/19/19 Clopidogrel [Plavix] 75 mg PO DAILY 04/26/14 08/19/19 Liraglutide [Victoza 3-Familia] 1.8 mg SQ DAILY 04/26/14 08/19/19 Metoprolol Succinate [Toprol XL] 50 mg PO HS 04/26/14 08/19/19 Enalapril [Vasotec] 5 mg PO DAILY 10/14/17 08/19/19 Insulin Detemir [Levemir Flextouch] 48 units SQ BID 10/14/17 08/19/19 Multivitamin [Men's Multi-Vitamin] 1 tab PO DAILY 10/14/17 08/19/19 [place]-3 Fatty Acids/Fish Oil [Fish 1 cap PO BID 10/14/17 08/19/19 Oil 1,000 mg Softgel] Ubidecarenone [Co Q-10] 100 mg PO BID 10/14/17 08/19/19 metFORMIN HCL [Glucophage] 850 mg PO BID 10/14/17 08/19/19 Previous Rx's Medication Instructions Recorded Nitroglycerin Sl Tabs [Nitrostat] 0.4 mg SUBLINGUAL Q5M PRN #20 tab 04/27/14 Allergies Allergy/AdvReac Type Severity Reaction Status Date / Time No Known Allergies Allergy Verified 10/14/17 10:56 Review of Systems ROS Statement: Those systems with pertinent positive or pertinent negative responses have been documented in the HPI. ROS Other: All systems not noted in ROS Statement are negative. Past Medical History Past Medical History: Coronary Artery Disease (CAD), Diabetes Mellitus, GERD/Re flux, Hyperlipidemia, Myocardial Infarction (PA), Skin Disorder Additional Past Medical History / Comment(s): Pt states he is currently being tx for a upper respiratory tract/ throat infection with ABX/steroids, IDDM type II, varicosities bilaterally, rosacia. Last Myocardial Infarction Date:: 2013 History of Any Multi-Drug Resistant Organisms: None Reported Past Surgical History: Heart Catheterization, Heart Catheterization With Stent, Orthopedic Surgery, Tonsillectomy Additional Past Surgical History / Comment(s): PCI with stents, R arm reattached muscle, colonoscopy. Past Anesthesia/Blood Transfusion Reactions: No Reported Reaction Date of Last Stent Placement:: 2013 Past Psychological History: No Psychological Hx Reported Smoking Status: Former smoker Past Alcohol Use History: None Reported Past Drug Use History: None Reported - Past Family History Father Family Medical History: Cancer, Coronary Artery Disease (CAD), Diabetes Mellitus, Prostate Disorder Additional Family Medical History / Comment(s): Father is . He had prostate cancer. Mother Additional Family Medical History / Comment(s): Mother is . She had valve replacement, mrsa, [place] Palsy General Exam Limitations: no limitations General appearance: alert, in no apparent distress Head exam: Present: atraumatic, normocephalic Eye exam: Present: normal appearance, PERRL ENT exam: Present: normal exam Neck exam: Present: normal inspection. Absent: tenderness, meningismus Respiratory exam: Present: normal lung sounds bilaterally. Absent: respiratory distress, wheezes Cardiovascular Exam: Present: regular rate, normal rhythm, normal heart sounds GI/Abdominal exam: Present: soft. Absent: distended, tenderness Extremities exam: Present: normal inspection, normal capillary refill. Absent: pedal edema, calf tenderness Neurological exam: Present: alert, oriented X3, CN II-XII intact. Absent: motor sensory deficit Psychiatric exam: Present: normal affect, normal mood Skin exam: Present: warm, dry, intact Course Vital Signs 08/19/19 08/19/19 20:22 21:30 Temperature 98.3 F Pulse Rate 73 78 Respiratory 18 18 Rate Blood Pressure 109/66 116/65 O2 Sat by Pulse 97 96 Oximetry EKG Findings - EKG Comments: EKG Findings:: EKG: Obtained at 2030, rate of 61, MO interval 178, QRS duration 84, QTC 380, normal sinus rhythm, no ST segment elevation. EKG obtained at 2130, normal sinus rhythm with sinus arrhythmia, rate of 77 MO interval 178, QRS duration 80, QTC 407, no ST segment elevation Medical Decision Making - Medical Decision Making 59-year-old male history of CAD presenting with central chest pain. Pain resolved with time my evaluation. This was nonexertional nonradiating pain. His initial EKG is negative for ST segment elevation. No definitive signs of ischemia on EKG. Chest x-ray negative for acute cardiac pulmonary disease. Patient has normal CBC, normal CMP, initial troponin is negative. Given the patient's risk factors he will be kept for observation for serial cardiac enzymes, telemetry, and cardiology consultation. Patient is agreeable with plan. Case is discussed with the admitting physician Dr. Modi - Lab Data Result diagrams: 08/19/19 20:40 08/19/19 20:40 Lab Results 08/19/19 08/19/19 08/19/19 Range/Units 20:40 20:40 20:40 WBC 9.2 (3.8-10.6) k/uL RBC 4.32 (4.30-5.90) m/uL Hgb 13.8 (13.0-17.5) gm/dL Hct 36.3 L (39.0-53.0) % MCV 84.1 (80.0-100.0) fL MCH 31.9 (25.0-35.0) pg MCHC 37.9 H (31.0-37.0) g/dL RDW 12.9 (11.5-15.5) % Plt Count 347 (150-450) k/uL Neutrophils % 66 % Lymphocytes % 22 % Monocytes % 5 % Eosinophils % 5 % Basophils % 1 % Neutrophils # 6.0 (1.3-7.7) k/uL Lymphocytes # 2.0 (1.0-4.8) k/uL Monocytes # 0.5 (0-1.0) k/uL Eosinophils # 0.4 (0-0.7) k/uL Basophils # 0.1 (0-0.2) k/uL PT 9.7 (9.0-12.0) sec INR 0.9 (<1.2) APTT 24.8 (22.0-30.0) sec Sodium 139 (137-145) mmol/L Potassium 4.5 (3.5-5.1) mmol/L Chloride 103 (98-107) mmol/L Carbon Dioxide 26 (22-30) mmol/L Anion Gap 10 mmol/L BUN 22 H (9-20) mg/dL Creatinine 1.19 (0.66-1.25) mg/dL Est GFR (CKD-EPI)AfAm 76 (>60 ml/min/1.73 sqM) Est GFR (CKD-EPI)NonAf 66 (>60 ml/min/1.73 sqM) Glucose 151 H (74-99) mg/dL Calcium 9.9 (8.4-10.2) mg/dL Magnesium 1.8 (1.6-2.3) mg/dL Total Bilirubin 0.5 (0.2-1.3) mg/dL AST 28 (17-59) U/L ALT 38 (21-72) U/L Alkaline Phosphatase 73 (38-126) U/L Troponin I (0.000-0.034) ng/mL Total Protein 6.9 (6.3-8.2) g/dL Albumin 4.1 (3.5-5.0) g/dL 08/19/19 Range/Units 20:40 WBC (3.8-10.6) k/uL RBC (4.30-5.90) m/uL Hgb (13.0-17.5) gm/dL Hct (39.0-53.0) % MCV (80.0-100.0) fL MCH (25.0-35.0) pg MCHC (31.0-37.0) g/dL RDW (11.5-15.5) % Plt Count (150-450) k/uL Neutrophils % % Lymphocytes % % Monocytes % % Eosinophils % % Basophils % % Neutrophils # (1.3-7.7) k/uL Lymphocytes # (1.0-4.8) k/uL Monocytes # (0-1.0) k/uL Eosinophils # (0-0.7) k/uL Basophils # (0-0.2) k/uL PT (9.0-12.0) sec INR (<1.2) APTT (22.0-30.0) sec Sodium (137-145) mmol/L Potassium (3.5-5.1) mmol/L Chloride (98-107) mmol/L Carbon Dioxide (22-30) mmol/L Anion Gap mmol/L BUN (9-20) mg/dL Creatinine (0.66-1.25) mg/dL Est GFR (CKD-EPI)AfAm (>60 ml/min/1.73 sqM) Est GFR (CKD-EPI)NonAf (>60 ml/min/1.73 sqM) Glucose (74-99) mg/dL Calcium (8.4-10.2) mg/dL Magnesium (1.6-2.3) mg/dL Total Bilirubin (0.2-1.3) mg/dL AST (17-59) U/L ALT (21-72) U/L Alkaline Phosphatase (38-126) U/L Troponin I <0.012 (0.000-0.034) ng/mL Total Protein (6.3-8.2) g/dL Albumin (3.5-5.0) g/dL Disposition Clinical Impression: Chest pain Disposition: ADMITTED IP TO THIS [facility] Condition: Stable Is patient prescribed a controlled substance at d/c from ED?: No Referrals: Nicholas Grimaldo MD [Primary Care Provider] - 1-2 days Decision to Admit Reason: Admit from EC Decision Date: 08/19/19 Decision Time: 22:05
[2019-08-19 21:20] LABS: Albumin 4.1 g/dL (3.5-5.0); Calcium 9.9 mg/dL (8.4-10.2); Magnesium 1.8 mg/dL (1.6-2.3); Potassium 4.5 mmol/L (3.5-5.1); Total Bilirubin 0.5 mg/dL (0.2-1.3); Total Protein 6.9 g/dL (6.3-8.2)
[2019-08-19] MEDS ORDERED: ASPIRIN 325 MG TAB PO STA (21:22)
--- NOTE | 2019-08-19 21:23 | XR ---
EXAMINATION TYPE: XR chest 2V DATE OF EXAM: 08/19/2019 COMPARISON: 10/14/2017 HISTORY: Intermittent chest pain TECHNIQUE: Frontal and lateral views of the chest are obtained. FINDINGS: Heart and mediastinum are normal. Lungs are clear. Diaphragm is normal. Bony thorax appear s normal. IMPRESSION: Normal chest. No change.
[2019-08-19] MEDS ORDERED: ACETAMINOPHEN TAB 325 MG TAB PO PRN (22:01)
[2019-08-19] MEDS ORDERED: NALOXONE 0.4 MG/ML 1 ML VIAL IV PRN (22:01)
[2019-08-19] MEDS ORDERED: MORPHINE SULFATE 4 MG/ML SYRINGE IV PRN (22:01)
[2019-08-19] MEDS ORDERED: NITROGLYCERIN SL TABS 0.4 MG TAB SUBLINGUAL PRN (22:02)
[2019-08-19 23:04] VITALS: RESP 16
[2019-08-20 06:01] LABS: Glucose,Whole Blood 145 mg/dL (75-99)
[2019-08-20 06:01] LABS: Glucose,Whole Blood 144 mg/dL (75-99)
[2019-08-20] MEDS ORDERED: INSULIN DETEMIR (LEVEMIR) 100 UNIT/ML SYR SQ SCH ×2 (07:30→09:00)
[2019-08-20] MEDS ORDERED: metFORMIN 850 MG TAB PO SCH ×2 (07:30→09:00)
[2019-08-20] MEDS ORDERED: LISINOPRIL 5 MG TAB PO SCH (09:00)
[2019-08-20] MEDS ORDERED: ASPIRIN 81 MG PO SCH (09:00)
[2019-08-20] MEDS ORDERED: CLOPIDOGREL 75 MG TAB PO SCH (09:00)
--- NOTE | 2019-08-20 09:11 | P.CRDCN ---
History of Present Illness Consult date: 08/20/19 History of present illness: This is a pleasant 59-year-old male patient who is known to Dr. VC Ibanez as an outpatient with a past medical history significant for coronary artery disease, diabetes type 2, hypertension, gastroesophageal reflux disease, dyslipidemia and former tobacco abuse. Patient warren a total of 8 stents. He had acatheterization 04/[address] Ibanez. That catheterization report reveals 90% in-stent restenosis mid LAD, proximal circumflex 90% stenosis, distal circumflex 80% and totally occluded RCA. At that time he sought a second opinion at [place]. He subsequently underwent heart catheterization in October [address] Chin that revealed patent stents. Echocardiogram at that time revealed EF of 50-55% with mild mitral regurgitation, trace tricuspid regurgitation.. Patient presented to the hospital complaining of upper sternal chest pain that started suddenly yesterday while he was watching TV. He denies any nausea, vomiting, dizziness, lightheadedness, diaphoresis, radiation of the pain. He tried to take Tums, baking soda and nitroglycerin sublingual without any improvement of the pain. He states he got up and walked which seemed to make the pain better. He laid down for short period of time and the pain get worse and he decided to come into [facility] emergency center for evaluation. At the time of this evaluation, patient is chest pain-free. He does report that he has felt that ALLERGIES are bothering him over the past 3 weeks. He has had increased congestion, mild sore throat and there is a new dog in the home. EKG reveals sinus rhythm with no acute ST-T wave changes. Laboratory studies: Troponin negative on 3 draws, WBC 9.2, hemoglobin 13.8, platelet count 347. Blood sugar 151, BUN 22 and creatinine 1.19. Electrolytes and liver function tests within normal limits. Outpatient stress test done on 08/01 showed no ischemia. Review Of Systems: Constitutional: No fever, no chills, no night sweats. No weight change. No weakness, fatigue or lethargy. No daytime sleepiness. EENT: No headache. No blurred vision or double vision, no loss of vision. No loss of Hearing, no ringing in the ears, no dizziness. No nasal drainage or congestion. No epistaxis. No sore throat. Lungs: No shortness of breath, cough, no sputum production. No wheezing. Cardiovascular: Reports chest pain, no lower extremity edema. No palpitations. No paroxysmal nocturnal dyspnea. No orthopnea. No lightheadedness or dizziness. No syncopal episodes. Abdominal: No abdominal pain. No nausea, vomiting. No diarrhea. No constipation. No bloody or tarry stools.. No loss of appetite. Genitourinary: No dysuria, increased frequency, urgency. No urinary retention. Musculoskeletal: No myalgias. No muscle weakness, no gait dysfunction, no frequent falls. No back pain. No neck pain. Integumentary: No wounds, no lesions. No rash or pruritus. No unusual bruisin g. No change in hair or nails. Neurologic: No aphasia. No facial droop. No change in mentation. No head injury. No headache. No paralysis. No paresthesia. Psychiatric: No depression. No anxiety. No mood swings. Endocrine: No abnormal blood sugars. No weight change. No excessive sweating or thirst. No cold intolerance. No weight change. Gen: This is a 59-year-old male. He is resting in bed appears to be comfortable and in no acute distress. No chest wall tenderness. HEENT: Head is atraumatic, normocephalic. Pupils equal, round. Sclerae is anicteric. NECK: Supple. No JVD. No lymphadenopathy. No thyromegaly. LUNGS: Clear to auscultation. No wheezes or rhonchi. No intercostal retractions. HEART: Regular rate and rhythm. No murmur. ABDOMEN: Soft. Bowel sounds are present. No masses. No tenderness. EXTREMITIES: No pedal edema. No calf tenderness. NEUROLOGICAL: Patient is awake, alert and oriented x3. Cranial nerves 2 through 12 are grossly intact. Assessment: Chest pain, acute coronary syndrome ruled out Known history of coronary artery disease Diabetes type 2 Hypertension Dyslipidemia Plan: Continue current home medications at current dosing Ambulate patient and assess for exertional chest pain If patient has no further chest pain, patient is cleared for discharge home and follow-up with Dr. VC Ibanez in the office Thank you kindly for this consultation Nurse practitioner note has been reviewed, I agree with documented findings and plan of care. Patient was seen and examined. Past Medical History Past Medical History: Coronary Artery Disease (CAD), Diabetes Mellitus, GERD/Reflux, Hyperlipidemia, Hypertension, Myocardial Infarction ([place]), Skin Disorder Additional Past Medical History / Comment(s): Pt states he is currently being tx for a upper respiratory tract/ throat infection with ABX/steroids, IDDM type II, varicosities bilaterally, rosacia. Last Myocardial Infarction Date:: 2013 History of Any Multi-Drug Resistant Organisms: None Reported Past Surgical History: Heart Catheterization, Heart Catheterization With Stent, Orthopedic Surgery, Tonsillectomy Additional Past Surgical History / Comment(s): PCI with stents, R arm reattached muscle, colonoscopy. Past Anesthesia/Blood Transfusion Reactions: No Reported Reaction Date of Last Stent Placement:: 2013 Past Psychological History: No Psychological Hx Reported Additional Psychological History / Comment(s): Pt resides with his spouse. He is independent. Smoking Status: Former smoker Past Alcohol Use History: None Reported Additional Past Alcohol Use History / Comment(s): Pt started smoking in 1979 and quit in 1999. Past Drug Use History: None Reported - Past Family History Father Family Medical History: Cancer, Coronary Artery Disease (CAD), Diabetes Mellitus, Prostate Disorder Additional Family Medical History / Comment(s): Father is . He had prostate cancer. Mother Additional Family Medical History / Comment(s): Mother is . She had valve replacement, mrsa, [place] Palsy Medications and Allergies Home Medications Medication Instructions Recorded Confirmed Type Aspirin 81 mg PO HS 04/26/14 08/19/19 History Clopidogrel [Plavix] 75 mg PO DAILY 04/26/14 08/19/19 History Liraglutide [Victoza 3-Familia] 1.8 mg SQ DAILY 04/26/14 08/19/19 History Metoprolol Succinate [Toprol XL] 50 mg PO HS 04/26/14 08/19/19 History Nitroglycerin Sl Tabs [Nitrostat] 0.4 mg SUBLINGUAL Q5M PRN #20 tab 04/27/14 08/19/19 Rx Enalapril [Vasotec] 5 mg PO DAILY 10/14/17 08/19/19 History Insulin Detemir [Levemir Flextouch] 46 units SQ BID 10/14/17 08/19/19 History Multivitamin [Men's Multi-Vitamin] 1 tab PO DAILY 10/14/17 08/19/19 History [place]-3 Fatty Acids/Fish Oil [Fish 1 cap PO BID 10/14/17 08/19/19 History Oil 1,000 mg Softgel] Ubidecarenone [Co Q-10] 100 mg PO DAILY 10/14/17 08/19/19 History metFORMIN HCL [Glucophage] 850 mg PO BID 10/14/17 08/19/19 History Insulin Lispro [humaLOG Kwikpen] See Protocol SQ HS 08/19/19 08/19/19 History Saw [place] 500 mg PO DAILY 08/19/19 08/19/19 History Famotidine [Pepcid] 20 mg PO BID #60 tab 08/20/19 Rx Allergies Allergy/AdvReac Type Severity Reaction Status Date / Time No Known Allergies Allergy Verified 08/19/19 22:37 Physical Exam Vitals: Vital Signs Temp Pulse Pulse Resp BP BP Pulse Ox 08/20/19 07:58 97.5 F L 86 16 110/70 96 08/20/19 03:05 98 F 62 16 105/60 98 08/19/19 22:55 98.5 F 67 16 122/58 97 08/19/19 22:00 98.3 F 63 18 113/82 98 08/19/19 21:30 78 18 116/65 96 08/19/19 20:22 98.3 F 73 18 109/66 97 Intake and Output 08/19/19 08/20/19 08/20/19 22:59 06:59 14:59 Intake Total 240 240 Balance 240 240 Intake: Oral 240 240 Other: # Voids 1 Weight 77.111 kg 77.2 kg Results 08/19/19 20:40 08/19/19 20:40 Cardiac Enzymes 08/19/19 08/19/19 08/20/19 Range/Units 20:40 20:40 03:11 AST 28 (17-59) U/L Troponin I <0.012 <0.012 (0.000-0.034) ng/mL 08/20/19 Range/Units 07:37 AST (17-59) U/L Troponin I <0.012 (0.000-0.034) ng/mL Coagulation 08/19/19 Range/Units 20:40 PT 9.7 (9.0-12.0) sec APTT 24.8 (22.0-30.0) sec CBC 08/19/19 Range/Units 20:40 WBC 9.2 (3.8-10.6) k/uL RBC 4.32 (4.30-5.90) m/uL Hgb 13.8 (13.0-17.5) gm/dL Hct 36.3 L (39.0-53.0) % Plt Count 347 (150-450) k/uL Comprehensive Metabolic Panel 08/19/19 Range/Units 20:40 Sodium 139 (137-145) mmol/L Potassium 4.5 (3.5-5.1) mmol/L Chloride 103 (98-107) mmol/L Carbon Dioxide 26 (22-30) mmol/L BUN 22 H (9-20) mg/dL Creatinine 1.19 (0.66-1.25) mg/dL Glucose 151 H (74-99) mg/dL Calcium 9.9 (8.4-10.2) mg/dL AST 28 (17-59) U/L ALT 38 (21-72) U/L Alkaline Phosphatase 73 (38-126) U/L Total Protein 6.9 (6.3-8.2) g/dL Albumin 4.1 (3.5-5.0) g/dL Current Medications Generic Name Dose Route Start Last Admin Trade Name Freq PRN Reason Stop Dose Admin Acetaminophen 650 mg 08/19/19 22:01 Tylenol Tab PO Q6HR PRN Mild Pain or Fever > 100.5 Aspirin 81 mg 08/20/19 09:00 Aspirin PO DAILY [facility] Clopidogrel Bisulfate 75 mg 08/20/19 09:00 Plavix PO DAILY [facility] Insulin Detemir 48 unit 08/20/19 07:30 08/20/19 06:20 Levemir SQ 48 unit BID-W/MEALS ANDREA Administration Lisinopril 5 mg 08/20/19 09:00 Zestril PO DAILY [facility] Metformin HCl 850 mg 08/20/19 07:30 08/20/19 06:20 Glucophage PO 850 mg BID-W/MEALS ANDREA Administration Metoprolol Succinate 50 mg 08/20/19 21:00 Toprol Xl PO HS [facility] Morphine Sulfate 4 mg 08/19/19 22:01 Morphine Sulfate (Inj) IV Q4HR PRN Severe Pain Naloxone HCl 0.2 mg 08/19/19 22:01 Narcan IV Q2M PRN Opioid Reversal Nitroglycerin 0.4 mg 08/19/19 22:02 Nitrostat SUBLINGUAL Q5M PRN Chest Pain Intake and Output 08/19/19 08/20/19 08/20/19 22:59 06:59 14:59 Intake Total 240 240 Balance 240 240 Intake: Oral 240 240 Other: # Voids 1 Weight 77.111 kg 77.2 kg 08/19/19 20:40 08/19/19 20:40
[2019-08-20] MEDS ORDERED: FAMOTIDINE 20 MG TAB PO SCH (12:00)
[2019-08-20 12:02] VITALS: BP 116/65; PULSE 84; TEMP 98.3
[2019-08-20 12:04] LABS: Glucose,Whole Blood 231 mg/dL (75-99)
--- NOTE | 2019-08-20 14:40 | P.HPIM ---
History of Present Illness H&P Date: 08/20/19 Chief Complaint: Chest pressure History of presenting complaint: This is a very pleasant 59-year-old patient of Dr. Grimaldo. Also follows with Dr. VC Ibanez from cardiology. Chronic stable medical conditions include coronary artery disease, diabetes mellitus type 2, GERD, hyperlipidemia, hypertension, varicosities bilaterally, rosacea. Patient's had coronary artery disease with stent, 5 years ago. All reported of 2018 he did have a cardiac catheterization was told that is [place] is with not enough for a stent. He did have a negative stress test 2 weeks ago. Patient does get heartburn about once a significant does take [id number] Tums for the same. Yesterday patient had an episode of what he felt was a pressure burning like sensation in the upper chest. Please across. He did take some Tums did not help to some baking soda did not help and also took some nitroglycerin to help. Patient had been feeling lightheaded during the day. No perspiration no shortness per the right. It lasted for about 3-4 hours. She did find the patient to be a bit pale. The symptoms were worse with lying down and better sitting up. Decided to come in. Troponins were negative. Review of systems: GEN.: Tired EYES: None HEENT: None NECK: None RESPIRATORY: None CARDIOVASCULAR: [As above GASTROINTESTINAL: Heartburn as above GENITOURINARY: None MUSCULOSKELETAL: None LYMPHATICS: None HEMATOLOGICAL: None PSYCHIATRY: None NEUROLOGICAL: None Past medical history to include: Coronary artery disease with stent 5 years ago, cardiac catheterization last year with no critical disease, and a negative stress test 2 weeks ago. Averaged TYPE II, GERD, hyperlipidemia, hypertension, rosacea, lower extremity varicosities. Social history: . Does smoke about 20 years, stopped in 1999. No alcohol. Physical examination: VITAL SIGNS: 98.3, 73, 18, 109/66, 97% room air GENERAL: BMI 25.9, laying in bed comfortable. EYES: Pupils equal. Conjunctiva normal. HEENT: External appearance of nose and ears normal, oral cavity grossly normal. NECK: JVD not raised; masses not palpable. HEART: First and second heart sounds are normal; no edema. LUNGS: Respiratory rate normal; clear to auscultation. ABDOMEN: Soft, nontender, liver spleen not palpable, no masses palpable. PSYCH: Alert and oriented x3; mood and affect normal. NEUROLOGICAL: Cranial nerves grossly intact; no facial asymmetry, power and sensation grossly intact. LYMPHATICS: No lymph nodes palpable in the axilla and neck INVESTIGATIONS, reviewed in the clinical context: White count 9.2 hemoglobin 13.8 platelets 347 progression 4.5 crit 1.19 Troponin I 3 negative EKG tracing personally reviewed by me-normal sinus rhythm Chest x-ray film personally reviewed by me-nothing acute Assessment: -Possible unstable angina in a patient with known coronary artery disease. The baby noted that a stress test 2 weeks ago was negative. Troponins are negative. EKG is unremarkable. Some features including worse with lying down most compatible GERD -GERD -Coronary artery disease with a stent [address] Garza -Diabetes mellitus type 2, chronically on insulin -GERD -Hyperlipidemia -Essential hypertension -Rosacea Plan: -Home medications resumed. Cardiology a consulted. We'll start the patient on Pepcid 20 mg twice a day. Care was discussed the patient and . Spoke to Dr. Moran from cardiogenic. He had spoken to patient with a possible cardiac catheterization. Patient Wishes to wait for the present time. Past Medical History Past Medical History: Coronary Artery Disease (CAD), Diabetes Mellitus, GERD/Reflux, Hyperlipidemia, Hypertension, Myocardial Infarction ([place]), Skin Disorder Additional Past Medical History / Comment(s): Pt states he is currently being tx for a upper respiratory tract/ throat infection with ABX/steroids, IDDM type II, varicosities bilaterally, rosacia. Last Myocardial Infarction Date:: 2013 History of Any Multi-Drug Resistant Organisms: None Reported Past Surgical History: Heart Catheterization, Heart Catheterization With Stent, Orthopedic Surgery, Tonsillectomy Additional Past Surgical History / Comment(s): PCI with stents, R arm reattached muscle, colonoscopy. Past Anesthesia/Blood Transfusion Reactions: No Reported Reaction Date of Last Stent Placement:: 2013 Past Psychological History: No Psychological Hx Reported Additional Psychological History / Comment(s): Pt resides with his spouse. He is independent. Smoking Status: Former smoker Past Alcohol Use History: None Reported Additional Past Alcohol Use History / Comment(s): Pt started smoking in 1979 and quit in 1999. Past Drug Use History: None Reported - Past Family History Father Family Medical History: Cancer, Coronary Artery Disease (CAD), Diabetes Mellitus, Prostate Disorder Additional Family Medical History / Comment(s): Father is . He had prostate cancer. Mother Additional Family Medical History / Comment(s): Mother is . She had valve replacement, mrsa, [place] Palsy Medications and Allergies Home Medications Medication Instructions Recorded Confirmed Type Aspirin 81 mg PO HS 04/26/14 08/19/19 History Clopidogrel [Plavix] 75 mg PO DAILY 04/26/14 08/19/19 History Liraglutide [Victoza 3-Familia] 1.8 mg SQ DAILY 04/26/14 08/19/19 History Metoprolol Succinate [Toprol XL] 50 mg PO HS 04/26/14 08/19/19 History Nitroglycerin Sl Tabs [Nitrostat] 0.4 mg SUBLINGUAL Q5M PRN #20 tab 04/27/14 Rx Enalapril [Vasotec] 5 mg PO DAILY 10/14/17 08/19/19 History Insulin Detemir [Levemir Flextouch] 46 units SQ BID 10/14/17 08/19/19 History Multivitamin [Men's Multi-Vitamin] 1 tab PO DAILY 10/14/17 08/19/19 History [place]-3 Fatty Acids/Fish Oil [Fish 1 cap PO BID 10/14/17 08/19/19 History Oil 1,000 mg Softgel] Ubidecarenone [Co Q-10] 100 mg PO DAILY 10/14/17 08/19/19 History metFORMIN HCL [Glucophage] 850 mg PO BID 10/14/17 08/19/19 History Insulin Lispro [humaLOG Kwikpen] See Protocol SQ HS 08/19/19 08/19/19 History Saw [place] 500 mg PO DAILY 08/19/19 08/19/19 History Famotidine [Pepcid] 20 mg PO BID #60 tab 08/20/19 Rx Allergies Allergy/AdvReac Type Severity Reaction Status Date / Time No Known Allergies Allergy Verified 08/19/19 22:37 Physical Exam Vitals: Vital Signs Temp Pulse Pulse Resp BP BP Pulse Ox 08/20/19 07:58 97.5 F L 86 16 110/70 96 08/20/19 03:05 98 F 62 16 105/60 98 08/19/19 22:55 98.5 F 67 16 122/58 97 08/19/19 22:00 98.3 F 63 18 113/82 98 08/19/19 21:30 78 18 116/65 96 08/19/19 20:22 98.3 F 73 18 109/66 97 Intake and Output 08/19/19 08/20/19 08/20/19 22:59 06:59 14:59 Intake Total 240 240 Balance 240 240 Intake: Oral 240 240 Other: # Voids 1 Weight 77.111 kg 77.2 kg Results CBC & Chem 7: 08/19/19 20:40 08/19/19 20:40 Labs: Abnormal Lab Results - Last 24 Hours (Table) 08/19/19 08/19/19 08/20/19 Range/Units 20:40 20:40 05:59 Hct 36.3 L (39.0-53.0) % MCHC 37.9 H (31.0-37.0) g/dL BUN 22 H (9-20) mg/dL Glucose 151 H (74-99) mg/dL POC Glucose (mg/dL) 144 H (75-99) mg/dL 08/20/19 Range/Units 06:01 Hct (39.0-53.0) % MCHC (31.0-37.0) g/dL BUN (9-20) mg/dL Glucose (74-99) mg/dL POC Glucose (mg/dL) 145 H (75-99) mg/dL Thrombosis Risk Factor Assmnt - Choose All That Apply Any of the Below Risk Factors Present?: Yes Each Factor Represents 1 point: Obesity (BMI >25) Each Risk Factor Represents 2 Points: Age 61-74 years Other congenital or acquired thrombophilia - If yes, enter type in comment: No Thrombosis Risk Factor Assessment Total Risk Factor Score: 3 Thrombosis Risk Factor Assessment Level: Moderate Risk
[2019-08-20] MEDS ORDERED: METOPROLOL SUCCINATE (ER) 50 MG TAB.ER.24H PO SCH (21:00)
[2019-08-21] MEDS ORDERED: NON FORMULARY DRUG (Liraglutide [Victoza 3-Pak] 1.8 MG) SQ SCH (09:00)
--- NOTE | 2019-08-21 19:13 | P.DS ---
Providers Date of admission: 08/19/19 22:02 Expected date of discharge: 08/20/19 Attending physician: Davian Modi Consults: 08/19/19 22:01 Consult Physician Routine Consulting Provider: Grady Garza Consult Reason/Comments: CP Do you want consulting provider notified?: Yes Primary care physician: [facility] Course: Chief Complaint: Chest pressure History of presenting complaint: This is a very pleasant 59-year-old patient of Dr. Grimaldo. Also follows with Dr. VC Ibanez from cardiology. Chronic stable medical conditions include coronary artery disease, diabetes mellitus type 2, GERD, hyperlipidemia, hypertension, varicosities bilaterally, rosacea. Patient's had coronary artery disease with stent, 5 years ago. All reported of 2018 he did have a cardiac catheterization was told that is [place] is with not enough for a stent. He did have a negative stress test 2 weeks ago. Patient does get heartburn about once a significant does take [id number] Tums for the same. Yesterday patient had an episode of what he felt was a pressure burning like sensation in the upper chest. Please across. He did take some Tums did not help to some baking soda did not help and also took some nitroglycerin to help. Patient had been feeling lightheaded during the day. No perspiration no shortness per the right. It lasted for about 3-4 hours. She did find the patient to be a bit pale. The symptoms were worse with lying down and better sitting up. Decided to come in. Troponins were negative. Patient was seen by cardiology. Okay to be discharged. Pepcid was added. Told to follow up with his cardiology and PCP. Consultation: Dr. Moran from cardiology Physical examination: VITAL SIGNS: 98.3, 84, 16, 1160 65, 97% room air GENERAL: BMI 25.9, sitting up comfortable EYES: Pupils equal. Conjunctiva normal. HEENT: External appearance of nose and ears normal, oral cavity grossly normal. NECK: JVD not raised; masses not palpable. HEART: First and second heart sounds are normal; no edema. LUNGS: Respiratory rate normal; clear to auscultation. ABDOMEN: Soft, nontender, liver spleen not palpable, no masses palpable. PSYCH: Alert and oriented x3; mood and affect normal. INVESTIGATIONS, reviewed in the clinical context: White count 9.2 hemoglobin 13.8 platelets 347 progression 4.5 crit 1.19 Troponin I 3 negative EKG tracing personally reviewed by me-normal sinus rhythm Chest x-ray film personally reviewed by me-nothing acute Assessment: -Chest pain possibly exacerbation of GERD -GERD -Coronary artery disease with a stent [address] Garza -Diabetes mellitus type 2, chronically on insulin -GERD -Hyperlipidemia -Essential hypertension -Rosacea Disposition: Home Patient Condition at Discharge: Stable Plan - Discharge Summary Discharge Rx Participant: No New Discharge Prescriptions: New Famotidine [Pepcid] 20 mg PO BID #60 tab Continue Liraglutide [Victoza 3-Familia] 1.8 mg SQ DAILY Aspirin 81 mg PO HS Metoprolol Succinate [Toprol XL] 50 mg PO HS Clopidogrel [Plavix] 75 mg PO DAILY Nitroglycerin Sl Tabs [Nitrostat] 0.4 mg SUBLINGUAL Q5M PRN #20 tab PRN Reason: Chest Pain metFORMIN HCL [Glucophage] 850 mg PO BID [place]-3 Fatty Acids/Fish Oil [Fish Oil 1,000 mg Softgel] 1 cap PO BID Insulin Detemir [Levemir Flextouch] 46 units SQ BID Enalapril [Vasotec] 5 mg PO DAILY Multivitamin [Men's Multi-Vitamin] 1 tab PO DAILY Insulin Lispro [humaLOG Kwikpen] See Protocol SQ HS No Action Ubidecarenone [Co Q-10] 100 mg PO DAILY [place] 500 mg PO DAILY Discharge Medication List Aspirin 81 mg PO HS 04/26/14 [History] Clopidogrel [Plavix] 75 mg PO DAILY 04/26/14 [History] Liraglutide [Victoza 3-Familia] 1.8 mg SQ DAILY 04/26/14 [History] Metoprolol Succinate [Toprol XL] 50 mg PO HS 04/26/14 [History] Nitroglycerin Sl Tabs [Nitrostat] 0.4 mg SUBLINGUAL Q5M PRN #20 tab 04/27/14 [Rx] Enalapril [Vasotec] 5 mg PO DAILY 10/14/17 [History] Insulin Detemir [Levemir Flextouch] 46 units SQ BID 10/14/17 [History] Multivitamin [Men's Multi-Vitamin] 1 tab PO DAILY 10/14/17 [History] [place]-3 Fatty Acids/Fish Oil [Fish Oil 1,000 mg Softgel] 1 cap PO BID 10/14/17 [History] Ubidecarenone [Co Q-10] 100 mg PO DAILY 10/14/17 [History] metFORMIN HCL [Glucophage] 850 mg PO BID 10/14/17 [History] Insulin Lispro [humaLOG Kwikpen] See Protocol SQ HS 08/19/19 [History] [place] 500 mg PO DAILY 08/19/19 [History] Famotidine [Pepcid] 20 mg PO BID #60 tab 08/20/19 [Rx] Follow up Appointment(s)/Referral(s): Nicholas Grimaldo MD [Primary Care Provider] - 1-2 days (offices closed, please call to make a follow up appointment) Rolan Ibanez MD [STAFF PHYSICIAN] - 08/24/19 2:15 pm Patient Instructions/Handouts: Chest Pain (DC) Discharge Disposition: HOME SELF-CARE
== END 2019-08-20 12:53 | disposition home or self-care (01) ==
LOC: EC 20:21 → 3SCARD 22:02
PROVIDERS: ADMIT Hospitalist; ATTEND Hospitalist
DX: R07.89 Other chest pain (principal); R42 Dizziness and giddiness; I25.10 Atherosclerotic heart disease of native coronary artery without angina pectoris; E11.9 Type 2 diabetes mellitus without complications; K21.9 Gastro-esophageal reflux disease without esophagitis; E78.5 Hyperlipidemia, unspecified; I10 Essential (primary) hypertension; I83.93 Asymptomatic varicose veins of bilateral lower extremities; L71.9 Rosacea, unspecified; Z95.5 Presence of coronary angioplasty implant and graft; E66.9 Obesity, unspecified; Z68.25 Body mass index [BMI] 25.0-25.9, adult; R09.81 Nasal congestion; J02.9 Acute pharyngitis, unspecified; Z79.4 Long term (current) use of insulin; Z79.82 Long term (current) use of aspirin; Z79.02 Long term (current) use of antithrombotics/antiplatelets; Z79.899 Other long term (current) drug therapy; Z87.891 Personal history of nicotine dependence; I25.2 Old myocardial infarction; Z82.49 Family history of ischemic heart disease and other diseases of the circulatory system; Z83.3 Family history of diabetes mellitus; Z80.42 Family history of malignant neoplasm of prostate; Z84.89 Family history of other specified conditions
CPT/HCPCS: 93005 ×2; 99285; 36415; 80053; 83735; 84484 ×2; 85025; 85610; 85730; 71046; G0378 ×2

== ENCOUNTER → 2020-05-10 | Outpatient (CLI) | payer OTHER ==
[2020-05-10 13:35] LABS: HCT 47.6 % (39.0-53.0); MCH 27.5 pg (25.0-35.0); MCHC 31.6 g/dL (31.0-37.0); MCV 87.2 fL (80.0-100.0); Mean Platelet Volume 7.5; Platelet Count 306 k/uL (150-450); RBC 5.46 m/uL (4.30-5.90); RDW 13.4 % (11.5-15.5); WBC 6.1 k/uL (3.8-10.6)
[2020-05-10 18:52] LABS: African American GFR (CKD) 84.1 (60.0-200.0); Albumin 4.7 g/dL (3.80-4.90); Albumin/Globulin Ratio 2.24 (1.60-3.17); Anion Gap 7.7 mmol/L (4.00-12.00); BUN/Creat Ratio 13.64 Ratio (12.00-20.00); Calcium 9.9 mg/dL (8.7-10.3); Carbon Dioxide 27.3 mmol/L (21.6-31.8); Chol/HDL Ratio 3.38; Globulin 2.1 g/dL (1.6-3.3); LDL Cholesterol,Calculated 44.2 mg/dL (0.0-131.0); Non-African American GFR(CKD) 72.6 (60.0-200.0); Potassium 4.5 mmol/L (3.5-5.5); Total Bilirubin 1.3 mg/dL (0.2-1.2); Total Protein 6.8 g/dL (6.2-8.2); VLDL Calculation 31.8 mg/dL (5.00-40.00)
[2020-05-10 18:59] LABS: Prostate Specific Antigen 2.7 ng/mL (0.0-4.5)
[2020-05-10 20:44] LABS: Hemoglobin A1C 7.8 % (4.0-6.0)
[2020-05-11 03:39] LABS: Urine Creatinine 140.4 mg/dL
== END | disposition home or self-care (01) ==
LOC: LABWHC1 12:21
PROVIDERS: ATTEND Internal Medicine Endocrinology, Diabetes & Metabolism
DX: Z00.01 Encounter for general adult medical examination with abnormal findings (principal); E11.65 Type 2 diabetes mellitus with hyperglycemia
CPT/HCPCS: 36415; 80053; 80061; 82043; 82570; 83036; 84153; 84443; 85027

== ENCOUNTER → 2020-08-10 | Day surgery (SDC) | payer OTHER ==
[2020-08-09 10:55] VITALS: BMI 27.3
[~2020-08-10] MED LIST: LACTATED RINGERS 1,000 ML IV SCH; PROPOFOL 10 MG/ML 20 ML VIAL IV ONE
[2020-08-10 07:42] VITALS: RESP 16; TEMP 97.4
[2020-08-10 08:02] LABS: Glucose,Whole Blood 176 mg/dL (75-99)
--- NOTE | 2020-08-10 08:12 | P.PCN ---
Date of Procedure: 08/10/20 Procedure(s) Performed: BRIEF HISTORY: Patient is a 60-year-old pleasant male scheduled for an elective colonoscopy as a part of screening for colorectal neoplasia. PROCEDURE PERFORMED: Colonoscopy with snare polypectomy. PREOPERATIVE DIAGNOSIS: Screening for colon cancer. IV sedation per Anesthesia. PROCEDURE: After informed consent was obtained, the patient, was brought into the endoscopy unit. IV sedation was administered by Anesthesia under continuous monitoring. Digital rectal examination was normal. Initially the Olympus CF-160 flexible video colonoscope was then inserted in the rectum, gradually advanced into the cecum without any difficulty. Careful examination was performed as the scope was gradually being withdrawn. Ileocecal valve and the appendiceal orifice were visualized and appeared normal. Prep was excellent. Mucosa of the cecum, ascending colon, transverse colon, descending colon, sigmoid colon, and rectum appeared normal. There was a 3 mm and 5 mm sessile rectal polyps status post snare polypectomy. Retroflexion was performed in the rectum and no lesions were seen. The patient tolerated the procedure well. IMPRESSION: 3 mm and 5 mm rectal polyp status post polypectomy Rest of the colon appeared normal RECOMMENDATIONS: Findings of this examination were discussed with the patient as well as his family. She was advised to follow with the biopsy results. If the biopsy shows an adenoma he can have a repeat colonoscopy in 5 years.
[2020-08-10 08:18] LABS: Glucose,Whole Blood 147 mg/dL (75-99)
[2020-08-10 09:11] VITALS: BP 125/78; PULSE 66
== END ==
LOC: ORWHC2ENDO 07:31
PROVIDERS: ATTEND Internal Medicine Gastroenterology
DX: Z12.11 Encounter for screening for malignant neoplasm of colon (principal); K62.1 Rectal polyp; I25.10 Atherosclerotic heart disease of native coronary artery without angina pectoris; I10 Essential (primary) hypertension; K21.9 Gastro-esophageal reflux disease without esophagitis; E78.5 Hyperlipidemia, unspecified; E11.9 Type 2 diabetes mellitus without complications; Z79.4 Long term (current) use of insulin; Z79.02 Long term (current) use of antithrombotics/antiplatelets; Z79.82 Long term (current) use of aspirin; Z79.899 Other long term (current) drug therapy; Z96.41 Presence of insulin pump (external) (internal)
CPT/HCPCS: 88305; 45385; J2704

== ENCOUNTER → 2021-01-15 | Outpatient (CLI) | payer OTHER ==
[2021-01-16 00:50] LABS: Hemoglobin A1C 7.7 % (4.0-6.0)
[2021-01-16 07:16] LABS: African American GFR (CKD) 83.5 (60.0-200.0); Albumin 5.1 g/dL (3.80-4.90); Albumin/Globulin Ratio 2.83 (1.60-3.17); Anion Gap 12.6 mmol/L (4.00-12.00); BUN/Creat Ratio 13.64 Ratio (12.00-20.00); Carbon Dioxide 22.4 mmol/L (21.6-31.8); Chol/HDL Ratio 3.06; Globulin 1.8 g/dL (1.6-3.3); LDL Cholesterol,Calculated 42.8 mg/dL (0.0-131.0); Non-African American GFR(CKD) 72.1 (60.0-200.0); Potassium 4.7 mmol/L (3.5-5.5); Total Bilirubin 1.5 mg/dL (0.2-1.2); Total Protein 6.9 g/dL (6.2-8.2); VLDL Calculation 29.2 mg/dL (5.00-40.00)
[2021-01-16 07:46] LABS: Urine Creatinine 253.8 mg/dL
== END | disposition home or self-care (01) ==
LOC: LABWHC1 13:33
PROVIDERS: ATTEND Internal Medicine Endocrinology, Diabetes & Metabolism
DX: E11.65 Type 2 diabetes mellitus with hyperglycemia (principal)
CPT/HCPCS: 36415; 80053; 80061; 82043; 82570; 83036; 84443

== ENCOUNTER → 2022-08-08 | Outpatient (CLI) | payer OTHER ==
[2022-08-08 17:33] LABS: HCT 48.8 % (39.6-50.0); HGB 15.5 g/dL (13.0-17.0); MCH 27.6 pg (27.0-32.0); MCHC 31.8 g/dL (32.0-37.0); Mean Platelet Volume 10.3 fL (9.5-12.2); NRBC Per 100 WBC 0 /100 WBCS (0.0-0.0); Platelet Count 286 X 10*3/uL (140-440); RBC 5.61 X 10*6/uL (4.40-5.60); RDW 13.6 % (11.5-14.5); WBC 5.08 X 10*3/uL (4.50-10.00)
[2022-08-08 18:04] LABS: ALT 22 U/L (10-49); AST 19 U/L (14-35); African American GFR (CKD) 74.1 (60.0-200.0); Albumin 4.7 g/dL (3.8-4.9); Albumin/Globulin Ratio 1.96 (1.60-3.17); Alkaline Phosphatase 73 U/L (41-126); Blood Urea Nitrogen 14.4 mg/dL (9.0-27.0); Calcium 9.8 mg/dL (8.7-10.3); Carbon Dioxide 27.5 mmol/L (20.0-27.5); Chloride 102 mmol/L (96-109); Chol/HDL Ratio 5.58 Ratio; Globulin 2.4 g/dL (1.6-3.3); Glucose 115 mg/dL (70-110); LDL Cholesterol,Calculated 168.4 mg/dL (0.0-131.0); Potassium 4.9 mmol/L (3.5-5.5); Sodium 140 mmol/L (135-145); Total Protein 7.1 g/dL (6.2-8.2)
== END | disposition home or self-care (01) ==
LOC: LABWHC1 11:40
PROVIDERS: ATTEND Internal Medicine Endocrinology, Diabetes & Metabolism
DX: Z00.01 Encounter for general adult medical examination with abnormal findings (principal); E11.65 Type 2 diabetes mellitus with hyperglycemia
CPT/HCPCS: 36415; 80053; 80061; 84153; 85027

== ENCOUNTER → 2022-09-30 | Outpatient (CLI) | payer MEDICAID ==
--- NOTE | 2022-09-30 18:39 | US ---
EXAMINATION TYPE: US prostate transrectal DATE OF EXAM: 09/30/2022 COMPARISON: NONE CLINICAL HISTORY: R97.20 elevated psa. Elevated PSA. Patient states doctor said the prostate felt enl arged on digital exam. Weak stream. Patient's father had prostate cancer. This examination was performed using the transrectal probe. EXAM MEASUREMENTS: Gland Size: 6.4 x 5.8 x 4.5 cm Volume: 87.77 ml Predicted PSA: 10.53 Actual PSA (if available):6.7 ng/mL In patient's EMR on 08/08/22. Gland appears enlarged and heterogeneous. IMPRESSION: Prostatomegaly. No ultrasound evidence for clinically significant prostate cancer. Consid er MRI as clinically warranted. Predicted PSA = volume x 0.12 ng/ml Calculated Volume = 0.5236 x L x W x H
== END | disposition home or self-care (01) ==
LOC: RADUSWWP 10:29
PROVIDERS: ATTEND Urology
DX: N40.1 Benign prostatic hyperplasia with lower urinary tract symptoms (principal); R97.20 Elevated prostate specific antigen [PSA]
CPT/HCPCS: 76872

== ENCOUNTER → 2022-10-23 | Outpatient (CLI) | payer MEDICAID ==
--- NOTE | 2022-10-25 12:32 | MR ---
EXAMINATION TYPE: MR Prostate wo/w con DATE OF EXAM: 10/23/2022 10:37 AM COMPARISON: None. CLINICAL INDICATION:Male, 62 years old with history of R97.20 elevated PSA; TECHNIQUE: Multi-planar, multi-sequence imaging of the pelvis is performed prior to and following the uncomplicated administration of bolus intravenous gadolinium. CONTRAST: 10 cc Gadavist Interpretive Criteria: PI-RADS v2.1 SERUM PSA: 9.4 on 09/08/2022. SURGICAL PATHOLOGY: No data available. FINDINGS: Prostatic dimensions: 6.2 x 5.4 x 5.2 cm. Ellipsoid Volume:91.16 (PSA density=0.10 ng/mL/mL) CENTRAL GLAND (Central and Transition Zones/CZ+TZ): Multiple bilateral, heterogenous appearing hypertrophic stromal nodules, without suspicious lesion. (PI-RADS 2) PERIPHERAL ZONE (PZ): Bilateral linear, indistinct wedgelike areas of low ADC, and low T2 signal, No evidence of masslike a bnormality, or localized perfusional hypervascularity, to further suggest a focus of clinically signi ficant prostate cancer. (PI-RADS 2) SEMINAL VESICLES (SV): Symmetric and unremarkable. PERIPROSTATIC TISSUES: Unremarkable. LYMPH NODES: No enlarged pelvic lymph node. REMAINING PELVIS: Bladder wall is within normal limits given distention. No abnormal free or organized intrapelvic fluid collection. No pathologic bowel dilation or mural thickening. Bilateral fat containing hernia. OSSEOUS STRUCTURES: No suspicious osseous abnormality. IMPRESSION: 1. No specific features for high-risk prostate cancer. Maximum PI-RADS score: 2. 2. Substantial BPH, estimated gland volume 91 mL.
== END | disposition home or self-care (01) ==
LOC: RADMRIMAIN 09:19
PROVIDERS: ATTEND Urology
DX: N40.0 Benign prostatic hyperplasia without lower urinary tract symptoms (principal); R97.20 Elevated prostate specific antigen [PSA]
CPT/HCPCS: 72197; A9585

== ENCOUNTER → 2024-01-15 | Outpatient (CLI) | payer OTHER ==
[2024-01-15 16:54] LABS: ALT 24 U/L (10-49); AST 23 U/L (14-35); Albumin 4.3 g/dL (3.8-4.9); Albumin/Globulin Ratio 1.65 Ratio (1.60-3.17); Alkaline Phosphatase 77 U/L (41-126); Blood Urea Nitrogen 12.6 mg/dL (9.0-27.0); Calcium 9.5 mg/dL (8.7-10.3); Carbon Dioxide 24.5 mmol/L (21.6-31.8); Chloride 102 mmol/L (96-109); Chol/HDL Ratio 6.23 Ratio; Globulin 2.6 g/dL (1.6-3.3); Glucose 132 mg/dL (70-110); LDL Cholesterol,Calculated 177.2 mg/dL (0.0-131.0); Potassium 4.4 mmol/L (3.5-5.5); Prostate Specific Antigen 6.59 ng/mL (0.000-4.500); Sodium 138 mmol/L (135-145); Total Bilirubin 0.8 mg/dL (0.3-1.2); Total Protein 6.9 g/dL (6.2-8.2)
[2024-01-15 20:46] LABS: Microalbumin Creatinine Ratio <8 mg/g Cr (0-30)
== END | disposition home or self-care (01) ==
LOC: LABWHC1 10:26
PROVIDERS: ATTEND Internal Medicine Endocrinology, Diabetes & Metabolism
DX: E11.65 Type 2 diabetes mellitus with hyperglycemia (principal); R97.20 Elevated prostate specific antigen [PSA]
CPT/HCPCS: 36415; 80053; 80061; 82043; 82570; 83036; 84153; 84443

== ENCOUNTER → 2024-07-22 | Outpatient (CLI) | payer MEDICARE ==
[2024-07-22 15:31] LABS: HCT 45.6 % (39.6-50.0); HGB 14.8 g/dL (13.0-17.0); MCHC 32.5 g/dL (32.0-37.0); MCV 86.4 FL (80.0-97.0); Mean Platelet Volume 10.1 FL (9.5-12.2); NRBC Per 100 WBC 0 X 10*3/uL (0.00-0.01); Platelet Count 287 X 10*3/uL (140-440); RBC 5.28 X 10*6/uL (4.40-5.60); RDW 13.2 % (11.5-14.5); WBC 6.28 X 10*3/uL (4.50-10.00)
[2024-07-22 15:37] LABS: ALT 18 U/L (10-49); AST 21 U/L (14-35); Albumin 4.4 g/dL (3.8-4.9); Albumin/Globulin Ratio 1.69 Ratio (1.60-3.17); Alkaline Phosphatase 69 U/L (41-126); BUN/Creat Ratio 10.15 Ratio (12.00-20.00); Blood Urea Nitrogen 13.2 mg/dL (9.0-27.0); Calcium 9.5 mg/dL (8.7-10.3); Carbon Dioxide 25.5 mmol/L (21.6-31.8); Chloride 103 mmol/L (96-109); Globulin 2.6 g/dL (1.6-3.3); Glucose 80 mg/dL (70-110); LDL Cholesterol,Calculated 152.2 mg/dL (0.0-131.0); Potassium 5.2 mmol/L (3.5-5.5); Sodium 139 mmol/L (135-145); Total Bilirubin 0.6 mg/dL (0.3-1.2)
[2024-07-22 15:38] LABS: Prostate Specific Antigen 7.35 ng/mL (0.000-4.500)
[2024-07-22 21:33] LABS: Microalbumin Creatinine Ratio <5 mg/g Cr (0-30)
== END | disposition home or self-care (01) ==
LOC: LABWHC1 11:47
PROVIDERS: ATTEND Family Medicine
CPT/HCPCS: 36415; 80053; 80061; 82043; 82570; 83036; 84153; 84443; 85027

== ENCOUNTER → 2024-08-16 | Outpatient (CLI) | payer MEDICARE | END | disposition home or self-care (01) | LOC: LABWHC1 12:11 | PROVIDERS: ATTEND Internal Medicine Endocrinology, Diabetes & Metabolism | DX: E11.65 Type 2 diabetes mellitus with hyperglycemia (principal) | CPT/HCPCS: 36415; 84681 ==

== ENCOUNTER → 2025-01-23 | Outpatient (CLI) | payer OTHER ==
[2025-01-23 16:06] LABS: ALT 40 U/L (10-49); AST 36 U/L (14-35); Albumin 4.5 g/dL (3.8-4.9); Albumin/Globulin Ratio 1.96 Ratio (1.60-3.17); Alkaline Phosphatase 64 U/L (41-126); BUN/Creat Ratio 10.62 Ratio (12.00-20.00); Calcium 9.3 mg/dL (8.7-10.3); Carbon Dioxide 23.7 mmol/L (21.6-31.8); Chloride 102 mmol/L (96-109); Chol/HDL Ratio 2.37 Ratio; Globulin 2.3 g/dL (1.6-3.3); Glucose 96 mg/dL (70-110); LDL Cholesterol,Calculated 28.6 mg/dL (0.0-131.0); Potassium 4.3 mmol/L (3.5-5.5); Sodium 136 mmol/L (135-145); Total Bilirubin 1.1 mg/dL (0.3-1.2); Total Protein 6.8 g/dL (6.2-8.2)
== END | disposition home or self-care (01) ==
LOC: LABWHC1 12:44
PROVIDERS: ATTEND Internal Medicine Cardiovascular Disease
DX: Z00.00 Encounter for general adult medical examination without abnormal findings (principal); Z53.9 Procedure and treatment not carried out, unspecified reason
CPT/HCPCS: 36415; 80053; 80061; 83036